=== PATIENT | female | born 1935 | race Hispanic/Latino ===

== ENCOUNTER 2017-01-21 12:00 | Inpatient (IN) | payer MEDICARE ==
[2017-01-21 12:00] VITALS: PULSE 160
--- NOTE | 2017-01-21 12:35 | ED PDOC ---
Arrival/HPI - General Time Seen by Provider: 01/21/17 12:13 Historian: Patient - History of Present Illness Narrative History of Present Illness (Text): 01/21/17 12:31 Patient is an 81 year old female whose past medical history includes NH and stents, no known history of atrial fibrillation, sent by ship manager for evaluation of "fast heart rate." Patient reports some intermittent dizziness since 2016 and states symptoms have not recently worsened. Currently patient denies chest pain, shortness of breath, or other symptoms. Denies headaches. Denies chest pain. Currently denies symptoms. Used Building Materials Yard Worker: Dr. Denise Greenberg MD ([facility]) Time/Duration: > month Symptom Onset: Gradual Symptom Course: Intermittent Modifying Factors (Text): None Associated Symptoms (Text): None Past Medical History - Provider Review Nursing Documentation Reviewed: Yes - Cardiac Hx Cardiac Disorders: Yes ([place] w/ LAD stent (04/18/2015)) Hx Congestive Heart Failure: Yes Hx Hypertension: Yes Hx Peripheral Edema: Yes (ble +1) - Pulmonary Hx Respiratory Disorders: No - Neurological Hx Neurological Disorder: Yes (SYNCOPE) Hx Dizziness: Yes Hx Migraine: Yes - HEENT Hx HEENT Disorder: Yes Hx Macular Degeneration: Yes - Renal Hx Renal Disorder: No - Endocrine/Metabolic Hx Endocrine Disorders: No - Hematological/Oncological Hx Blood Disorders: No - Integumentary Hx Dermatological Disorder: No - Musculoskeletal/Rheumatological Hx Musculoskeletal Disorders: No Hx Arthritis: No Hx Falls: No - Gastrointestinal Hx Gastrointestinal Disorders: Yes Hx Gastroesophageal Reflux: Yes - Genitourinary/Gynecological Hx Genitourinary Disorders: No Hx Reproductive Disorders: No - Psychiatric Hx Psychophysiologic Disorder: Yes Hx Anxiety: Yes Hx Substance Use: No - Surgical History Hx Cardiac Catheterization: Yes Hx Coronary Stent: Yes (X3 8-7-15) - Anesthesia Hx Anesthesia: No Hx Anesthesia Reactions: No Hx Malignant Hyperthermia: No - Suicidal Assessment Feels Threatened In Home Enviroment: No Family/Social History - Physician Review Nursing Documentation Reviewed: Yes Family/Social History: Unknown Family HX Smoking Status: Former Smoker Hx Alcohol Use: No Hx Substance Use: No Allergies/Home Meds Allergies/Adverse Reactions: Allergies amlodipine Allergy (Verified 01/21/17 17:15) SHORTNESS OF BREATH betamethasone Allergy (Verified 01/21/17 17:15) ANAPHYLAXIS candesartan Allergy (Verified 01/21/17 17:15) ANAPHYLAXIS clindamycin Allergy (Verified 01/21/17 17:15) ANAPHYLAXIS clobetasol Allergy (Verified 01/21/17 17:15) ANAPHYLAXIS hydroxyzine Allergy (Verified 01/21/17 17:15) ANAPHYLAXIS lisinopril Allergy (Verified 01/21/17 17:15) ANAPHYLAXIS metoprolol Allergy (Verified 01/21/17 17:15) SHORTNESS OF BREATH nebivolol HCl [From Bystolic] Allergy (Verified 01/21/17 17:15) SHORTNESS OF BREATH nisoldipine Allergy (Verified 01/21/17 17:15) ANAPHYLAXIS olmesartan medoxomil [From Benicar] Allergy (Verified 01/21/17 17:15) ANAPHYLAXIS rofecoxib [From Vioxx] Allergy (Verified 01/21/17 17:15) ANAPHYLAXIS Home Medications: Home Meds Medication Instructions Recorded Confirmed ALPRAZolam [Xanax] 0.5 tab PO PRN PRN 07/19/16 07/19/16 Furosemide [Lasix] 40 mg PO DAILY 07/19/16 07/19/16 Review of Systems - Review of Systems Constitutional: absent: Fevers Eyes: absent: Vision Changes ENT: absent: Hearing Changes Respiratory: absent: SOB, Cough Cardiovascular: absent: Chest Pain Gastrointestinal: absent: Abdominal Pain, Nausea, Vomiting Genitourinary Female: absent: Dysuria, Hematuria Musculoskeletal: absent: Back Pain Skin: absent: Rash Neurological: Dizziness Endocrine: absent: Diaphoresis Psychiatric: absent: Depression Physical Exam - Physical Exam Narrative Physical Exam (Text): Head: Atraumatic. Normocephalic. Eyes: PERRL. EOMI. Conjunctivae are not pale. ENT: Mucous membranes are moist and intact. Oropharynx is clear and symmetric. Neck: Supple. Full ROM. No JVD. No lymphadenopathy. Cardiovascular: Tachycardic. Irregularly irregular rhythm. No murmurs, rubs, or gallops. Distal pulses are 2+ and symmetric. Pulmonary/Chest: No evidence of respiratory distress. Clear to auscultation bilaterally. No wheezing, rales or rhonchi. Abdominal: Soft and non-distended. There is no tenderness. No rebound, guarding, or rigidity. No organomegaly. Good bowel sounds. Back: No CVA tenderness. Extremities: No edema. No cyanosis. No clubbing. Full range of motion in all extremities. No calf tenderness. Skin: Skin is warm and dry. No petechiae. No purpura. Neurological: Alert, awake, and oriented to person, place, time, and situation. Normal speech. Psychiatric: Good eye contact. Normal interaction, affect, and behavior. Vital Signs Reviewed: Yes Vital Signs Temp Pulse Resp BP Pulse Ox 01/21/17 19:18 71 18 127/84 99 01/21/17 17:45 76 18 110/75 100 01/21/17 17:03 123 H 18 109/72 99 01/21/17 16:45 129 H 122/78 01/21/17 16:32 131 H 17 122/78 99 01/21/17 15:43 142 H 135/86 01/21/17 15:36 132 H 18 135/86 97 01/21/17 13:22 139 H 15 137/97 H 97 01/21/17 13:03 147 H 138/98 H 01/21/17 12:31 98.8 F 133 H 14 132/81 98 Temperature: Afebrile Blood Pressure: Normal Pulse: Tachycardic Respiratory Rate: Normal Appearance: Positive for: Well-Appearing, Non-Toxic, Comfortable Pain Distress: None Mental Status: Positive for: Alert and Oriented X 3 Medical Decision Making ED Course and Treatment: Patient reportedly sent from ship manager's office prior to arrival. Patient on examination noted to be in atrial fibrillation with rapid ventricular rate. Patient with stable blood pressure. No chest pain or shortness of breath. Chest X-ray Glass Ribbon Machine Operator: Madi Gil MD IMPRESSION: No active disease 01/21/17 12:48 Allergies reviewed with patient. Patient states that taking certain blood pressure medications causes "upset stomach." Case discussed with ship manager Dr. Francisco who confirms that patient has described her "allergies" as "upset stomach" not anaphylaxis. After careful review of her stated allergies, patient was initiated on Cardizem bolus, with no adverse effect. Heart rate remained elevated, thus additional Cardizem bolus and drip ordered with improvement in rate. Heparin drip ordered. Patient updated with diagnosis and treatment plan. She is comfortable with improved heart rate on re-examination. Case discussed with Dr. Thompson who accepts for admission to telemetry for new onset atrial fibrillation - Lab Interpretations Lab Results: 01/21/17 12:20 01/21/17 12:20 Lab Results 01/21/17 12:20: Sodium 141, Potassium 4.2, Chloride 100, Carbon Dioxide 32, Anion Gap 13, BUN 30 H, Creatinine 0.8, Est GFR ( Amer) > 60, Est GFR ( Non-Af Amer) > 60, Random Glucose 108, Calcium 9.4, Total Bilirubin 0.3, AST 43 H, ALT 33, Alkaline Phosphatase 71, Lactate Dehydrogenase 576, Total Creatine Kinase 82, Troponin I 0.03, NT-Pro-B Natriuret Pep 1700 H, Total Protein 8.0, Albumin 4.3, Globulin 3.6, Albumin/Globulin Ratio 1.2 01/21/17 12:20: Urine Color Yellow, Urine Appearance Clear, Urine pH 6.0, Ur Specific [place] <= 1.005, Urine Protein Negative, Urine Glucose (UA) Negative, Urine Ketones Negative, Urine Blood Trace-lysed H, Urine Nitrate Positive H, Urine Bilirubin Negative, Urine Urobilinogen 0.2, Ur Leukocyte Esterase Moderate H, Urine RBC 0 - 2, Urine WBC 25 - 30, Ur Epithelial Cells 0 - 2, Urine Bacteria Mod 01/21/17 12:20: PT 10.4, INR 0.96, APTT 24.3 01/21/17 12:20: WBC 8.3 D, RBC 4.35, Hgb 13.5, Hct 40.5, MCV 93.1, MCH 31.0, MCHC 33.3, RDW 14.2, Plt Count 229, MPV 11.2 H, Gran % 67.4, Lymph % (Auto) 22.7 , [place] % (Auto) 7.5 H, Eos % (Auto) 1.6, Baso % (Auto) 0.8, Gran # 5.60, Lymph # 1.9, [place] # 0.6, Eos # 0.1, Baso # 0.07 I have reviewed the lab results: Yes - RAD Interpretation Radiology Orders: 01/21/17 12:38 CHEST PORTABLE [RAD] Stat - Medication Orders Current Medication Orders: Aspirin (Ecotrin) 81 mg PO 0800 JEFF Clopidogrel Bisulfate (Plavix) 75 mg PO 0800 JEFF Furosemide (Lasix) 20 mg PO DAILY JEFF diltiaZEM IVPB 100mg in NS (Cardizem 100mg In Ns) 100 mls @ 5 mls/hr IV .Q20H PRN; Protocol; 5 MG/HR PRN Reason: TITRATE PER MD ORDER Last Admin: 01/21/17 16:45 Dose: 5 mls/hr Heparin Sodium/Sodium Chloride (Heparin 63950 Units/250ml 1/2 Normal Saline) 25 ,000 units in 250 mls @ 9.079 mls/hr IV .Q24H PRN; Protocol; 18 UNIT/KG/HR PRN Reason: PER MD ORDER Last Admin: 01/21/17 16:58 Dose: 9.079 mls/hr Pantoprazole Sodium (Protonix Ec Tab) 40 mg PO DAILY JEFF Discontinued Medications Diltiazem HCl (Cardizem) 10 mg IVP ONCE ONE Stop: 01/21/17 12:46 Last Admin: 01/21/17 13:03 Dose: 10 mg Diltiazem HCl (Cardizem) 15 mg IVP ONCE ONE Stop: 01/21/17 13:24 Last Admin: 01/21/17 15:43 Dose: 15 mg Heparin Sodium (Porcine) (Heparin) 3,400 units 70 units/kg (3400 units) IV ONCE ONE PRN Reason: Protocol Stop: 01/21/17 15:32 Last Admin: 01/21/17 16:33 Dose: 3,400 units Heparin Sodium/Sodium Chloride (Heparin 05681 Units/250ml 1/2 Normal Saline) 25 ,000 units in 250 mls @ 8.818 mls/hr IV .Q24H PRN; Protocol; 18 UNITS/KG/HR PRN Reason: ADJUST RATE PER PROTOCOL - Scribe Statement The provider has reviewed the documentation as recorded by the Lory Gottlieb Provider Scribe Attestation: All medical record entries made by the Lory were at my direction and personally dictated by me. I have reviewed the chart and agree that the record accurately reflects my personal performance of the history, physical exam, medical decision making, and the department course for this patient. I have also personally directed, reviewed, and agree with the discharge instructions and disposition. Disposition/Present on Arrival - Present on Arrival Any Indicators Present on Arrival: No History of DVT/PE: No History of Uncontrolled Diabetes: No Urinary Catheter: No History Surgical Site Infection Following: None - Disposition Have Diagnosis and Disposition been Completed?: Yes Diagnosis: Atrial fibrillation with rapid ventricular response Disposition: HOSPITALIZED Disposition Time: 14:00 Patient Plan: Admission, Telemetry Condition: FAIR
[2017-01-21 12:46] LABS: ADD MANUAL DIFF? NO
[2017-01-21 12:52] LABS: URINE BILIRUBIN NEGATIVE (NEGATIVE); URINE BLOOD TRACE-LYSED (NEGATIVE); URINE GLUCOSE (UA) NEGATIVE (NEGATIVE); URINE KETONE NEGATIVE (NEGATIVE); URINE LEUKOCYTE ESTERASE MODERATE Leu/uL (NEGATIVE); URINE PROTEIN NEGATIVE mg/dL (<30 mg/dL); URINE UROBILINOGEN 0.2 E.U./dL (<1 E.U./dL)
[2017-01-21 12:54] LABS: BASO # 0.07 K/mm3 (0.0-2.0); BASO % 0.8 % (0.0-3.0); EOS # 0.1 (0.0-0.7); EOS % 1.6 % (1.5-5.0); GRAN % 67.4 % (50.0-68.0); HEMATOCRIT 40.5 % (36.0-48.0); LYMPH # 1.9 (1.2-3.4); LYMPH % 22.7 % (22.0-35.0); MEAN CELL VOLUME 93.1 fL (80.0-105.0); MEAN CORPUSCULAR HGB CONC 33.3 g/dl (31.0-37.0); MEAN PLATELET VOLUME 11.2 fl (7.0-11.0); MONO # 0.6 (0.1-0.6); MONO % 7.5 % (1.0-6.0); PLATELET COUNT 229 10^3/uL (120.0-450.0); RED CELL DISTRIBUTION WIDTH 14.2 % (11.5-14.5); WHITE BLOOD COUNT 8.3 10^3/ul (4.5-11.0)
[2017-01-21 12:57] LABS: URINE APPEARANCE CLEAR (CLEAR); URINE COLOR YELLOW (YELLOW)
[2017-01-21 12:59] LABS: ALB/GLOB RATIO 1.2 (1.1-1.8); ALKALINE PHOSPHATASE 71 U/L (38-133); ALT/SGPT 33 U/L (7-56); AST/SGOT 43 U/L (15-39); BILIRUBIN,TOTAL 0.3 mg/dL (0.2-1.3); BLOOD UREA NITROGEN 30 mg/dL (7-21); CALCIUM 9.4 mg/dL (8.4-10.5); CARBON DIOXIDE 32 mmol/L (21-33); CHLORIDE 100 mmol/L (98-107); GFR AFRICAN-AMERICAN > 60; GLUCOSE,RANDOM 108 mg/dL (70-110); POTASSIUM 4.2 mmol/L (3.6-5.0); SODIUM 141 mmol/L (132-148)
--- NOTE | 2017-01-21 13:02 | RAD ---
HISTORY: dizziness COMPARISON: 07/19/2016 FINDINGS: LUNGS: No active pulmonary disease. PLEURA: No significant pleural effusion identified, no pneumothorax apparent. CARDIOVASCULAR: Normal. OSSEOUS STRUCTURES: No significant abnormalities. VISUALIZED UPPER ABDOMEN: Normal. OTHER FINDINGS: None. IMPRESSION: No active disease.
[2017-01-21 13:06] LABS: INR 0.96 (0.93-1.08); PARTIAL THROMBOPLASTIN TIME 24.3 Seconds (23.7-30.8)
[2017-01-21 13:11] LABS: TROPONIN I 0.03 ng/mL
[2017-01-21] MEDS ORDERED: diltiaZEM IVPB 100mg in NS 100 ML IV PRN (13:24)
[2017-01-21 13:39] LABS: URINE BACTERIA MOD (NEG); URINE EPITHELIAL CELLS 0 - 2 /hpf (0-5); URINE RBC 0 - 2 /hpf (0-2); URINE WBC 25 - 30 /hpf (0-6)
[2017-01-21] MEDS ORDERED: Heparin25000 units/250ml 1/2NS 25,000 UNITS/250 ML BAG IV PRN ×2 (15:31→16:53)
--- NOTE | 2017-01-21 16:28 | CP.PCM.HP ---
Addendum entered and electronically signed by Melissa Soria DO 01/21/17 17:16: Plan edit: since patient has ST elevations on presentation, will trend trops and EKG. Original Note: <Melissa Soria - Last Filed: 01/21/17 16:18> History of Present Illness - History of Present Illness History of Present Illness: CC: fast heart rate 81 year old female with past medical history of CAD s/p stents x 2, HLD, paroxysmal a fib, pituitary adenoma and macular degeneration presents to ED for tachycardia. Patient states that she went to see her internet sales representative, Dr. Greenberg for a scheduled visit and mentioned that she had chest pressure. EKG done at clinic showed a "fast heart rate" and she was told to go to ED. Patient does not know a specific time for when this chest pressure began. She states that since her heart attack in 05/2015, she has been having chest pressure on left side. The pressure is intermittent and is not associated with any activity and does not radiate. Since heart attack, she has been feeling dizzy as well. The dizziness is intermittent and she attributes it to taking her lisinopril. Patient denies having any history of a fib but in previous notes, it is documented. Today, patient denies having any CP, SOB, abd pain, N/V /D/C, f/c, dysuria or increased urinary frequency. PMhx; stated above Sx; PCi with stents Meds: see MAR Social: former smoker, quit 40 yrs ago. Daily ETOH use 1 glass of wine. No drug use Allergies: amlodipine, betamethasone, candesartan, clindamycin, clobetasol, hydroxyzine, lisinopril, metoprolol, nebivolol, nisoldipine, olmesartan, rofecoxib PMD: Dr. Busby Administrative Representative: Dr. Greenberg. She was seen by Dr. Hickman in past. Present on Admission - Present on Admission Any Indicators Present on Admission: No Review of Systems - Review of Systems All systems: reviewed and no additional remarkable complaints except Past Patient History - Past Social History Smoking Status: Former Smoker Chewing Tobacco Use: No Cigar Use: No Alcohol: None Drugs: Denies Home Situation {Lives}: Alone - CARDIAC Hx Cardiac Disorders: Yes ([place] w/ LAD stent (04/18/2015)) Hx Congestive Heart Failure: Yes Hx Hypertension: Yes Hx Peripheral Edema: Yes (ble +1) - PULMONARY Hx Respiratory Disorders: No - NEUROLOGICAL Hx Neurological Disorder: Yes (SYNCOPE) Hx Dizziness: Yes Hx Migraine: Yes - HEENT Hx HEENT Problems: Yes Hx Macular Degeneration: Yes - RENAL Hx Chronic Kidney Disease: No - ENDOCRINE/METABOLIC Hx Endocrine Disorders: No - HEMATOLOGICAL/ONCOLOGICAL Hx Blood Disorders: No - INTEGUMENTARY Hx Dermatological Problems: No - MUSCULOSKELETAL/RHEUMATOLOGICAL Hx Musculoskeletal Disorders: No Hx Arthritis: No Hx Falls: No - GASTROINTESTINAL Hx Gastrointestinal Disorders: Yes Hx Gastroesophageal Reflux: Yes - GENITOURINARY/GYNECOLOGICAL Hx Genitourinary Disorders: No Hx Reproductive Disorders: No - PSYCHIATRIC Hx Psychophysiologic Disorder: Yes Hx Anxiety: Yes Hx Substance Use: No - SURGICAL HISTORY Hx Cardiac Catheterization: Yes Hx Coronary Stent: Yes (X3 04-18-15) - ANESTHESIA Hx Anesthesia: No Hx Anesthesia Reactions: No Hx Malignant Hyperthermia: No Meds Allergies/Adverse Reactions: Allergies Allergy/AdvReac Type Severity Reaction Status Date / Time amlodipine Allergy SHORTNESS Verified 01/21/17 17:15 OF BREATH betamethasone Allergy ANAPHYLAXIS Verified 01/21/17 17:15 candesartan Allergy ANAPHYLAXIS Verified 01/21/17 17:15 clindamycin Allergy ANAPHYLAXIS Verified 01/21/17 17:15 clobetasol Allergy ANAPHYLAXIS Verified 01/21/17 17:15 hydroxyzine Allergy ANAPHYLAXIS Verified 01/21/17 17:15 lisinopril Allergy ANAPHYLAXIS Verified 01/21/17 17:15 metoprolol Allergy SHORTNESS Verified 01/21/17 17:15 OF BREATH nebivolol HCl [From Bystolic] Allergy SHORTNESS Verified 01/21/17 17:15 OF BREATH nisoldipine Allergy ANAPHYLAXIS Verified 01/21/17 17:15 olmesartan medoxomil Allergy ANAPHYLAXIS Verified 01/21/17 17:15 [From Benicar] rofecoxib [From Vioxx] Allergy ANAPHYLAXIS Verified 01/21/17 17:15 Physical Exam - Constitutional Appears: Non-toxic, No Acute Distress - Head Exam Head Exam: ATRAUMATIC - ENT Exam ENT Exam: Mucous Membranes Moist - Respiratory Exam Respiratory Exam: Clear to Auscultation Bilateral, NORMAL BREATHING PATTERN. absent: Accessory Muscle Use, Rales, Rhonchi, Wheezes, Respiratory Distress - Cardiovascular Exam Cardiovascular Exam: Tachycardia, +S1, +S2 - GI/Abdominal Exam GI & Abdominal Exam: Normal Bowel Sounds, Soft. absent: Distended, Firm, Guarding, Rigid, Tenderness - Extremities Exam Extremities exam: Negative for: pedal edema, tenderness - Neurological Exam Neurological exam: Alert, Oriented x3 - Psychiatric Exam Psychiatric exam: Normal Affect, Normal Mood - Skin Skin Exam: Dry, Intact, Normal Color, Warm Results - Vital Signs Recent Vital Signs: Last Vital Signs Temp 98.8 F 01/21/17 12:31 Pulse 142 H 01/21/17 15:43 Resp 18 01/21/17 15:36 BP 135/86 01/21/17 15:43 Pulse Ox 97 01/21/17 15:36 - Labs Result Diagrams: 01/21/17 12:20 01/21/17 12:20 Labs: Laboratory Results - last 24 hr 01/21/17 01/21/17 01/21/17 12:20 12:20 12:20 WBC 8.3 D RBC 4.35 Hgb 13.5 Hct 40.5 MCV 93.1 MCH 31.0 MCHC 33.3 RDW 14.2 Plt Count 229 MPV 11.2 H Gran % 67.4 Lymph % (Auto) 22.7 [place] % (Auto) 7.5 H Eos % (Auto) 1.6 Baso % (Auto) 0.8 Gran # 5.60 Lymph # 1.9 [place] # 0.6 Eos # 0.1 Baso # 0.07 PT 10.4 INR 0.96 APTT 24.3 Sodium Potassium Chloride Carbon Dioxide Anion Gap BUN Creatinine Est GFR ( Amer) Est GFR (Non-Af Amer) Random Glucose Calcium Total Bilirubin AST ALT Alkaline Phosphatase Lactate Dehydrogenase Total Creatine Kinase Troponin I NT-Pro-B Natriuret Pep Total Protein Albumin Globulin Albumin/Globulin Ratio Urine Color Yellow Urine Appearance Clear Urine pH 6.0 Ur Specific [place] <= 1.005 Urine Protein Negative Urine Glucose (UA) Negative Urine Ketones Negative Urine Blood Trace-lysed H Urine Nitrate Positive H Urine Bilirubin Negative Urine Urobilinogen 0.2 Ur Leukocyte Esterase Moderate H Urine RBC 0 - 2 Urine WBC 25 - 30 Ur Epithelial Cells 0 - 2 Urine Bacteria Mod 01/21/17 12:20 WBC RBC Hgb Hct MCV MCH MCHC RDW Plt Count MPV Gran % Lymph % (Auto) [place] % (Auto) Eos % (Auto) Baso % (Auto) Gran # Lymph # [place] # Eos # Baso # PT INR APTT Sodium 141 Potassium 4.2 Chloride 100 Carbon Dioxide 32 Anion Gap 13 BUN 30 H Creatinine 0.8 Est GFR ( Amer) > 60 Est GFR (Non-Af Amer) > 60 Random Glucose 108 Calcium 9.4 Total Bilirubin 0.3 AST 43 H ALT 33 Alkaline Phosphatase 71 Lactate Dehydrogenase 576 Total Creatine Kinase 82 Troponin I 0.03 NT-Pro-B Natriuret Pep 1700 H Total Protein 8.0 Albumin 4.3 Globulin 3.6 Albumin/Globulin Ratio 1.2 Urine Color Urine Appearance Urine pH Ur Specific [place] Urine Protein Urine Glucose (UA) Urine Ketones Urine Blood Urine Nitrate Urine Bilirubin Urine Urobilinogen Ur Leukocyte Esterase Urine RBC Urine WBC Ur Epithelial Cells Urine Bacteria - EKG Data EKG Interpreted by: Myself Rate: Tachycardia Assessment & Plan - Assessment and Plan (Free Text) Assessment: 81 year old female with past medical history of CAD s/p stents x 2, HLD, paroxysmal a fib, pituitary adenoma and macular degeneration is admitted for paroxysmal atiral fibrillation. EKG on presentation showed a fib with HR of [address] elevations on V2-V6. ST changes were present on pervious EKGs as well. Initial troponin is negative. Paroxysmal a fib - Pt given cardizem IV push in ED which did not control her HR. Now she is on cardizem drip. - CHADSVAS score of 5. Patient is given a heparin loading dose and is started on heparin drip. - Cardiology, Dr. Liu is consulted - Will check hgba1c and lipid panel and TSH and Free T4 - Will get echo. Last echo from 2014 showed EF of 40% with mild MR and TR CAD s/p stent - Will continue home medications aspirin and plavix HLD - Will check lipid panel. - Patient states that she polanco snot take any cholesterol lowering meds due to side effects Bacturia - Patient is asymptomatic so will not treat at this time. Prophylaxis - Protonix - Heparin, SCDs Case discussed with attending, Dr. Aj - Date & Time Date: 01/21/17 Time: 16:29 <Jarret Aj - Last Filed: 01/22/17 16:06> Results - Vital Signs Recent Vital Signs: Last Vital Signs Temp 98 F 01/22/17 11:41 Pulse 74 01/22/17 11:41 Resp 18 01/22/17 11:41 BP 105/71 01/22/17 11:41 Pulse Ox 98 01/22/17 05:54 - Labs Result Diagrams: 01/22/17 07:00 01/22/17 07:00 Labs: Laboratory Results - last 24 hr 01/21/17 01/21/17 01/22/17 23:07 23:07 07:00 WBC RBC Hgb Hct MCV MCH MCHC RDW Plt Count MPV Gran % Lymph % (Auto) [place] % (Auto) Eos % (Auto) Baso % (Auto) Gran # Lymph # [place] # Eos # Baso # PT 11.4 INR 1.06 APTT 94.1 H* 99.8 H* Sodium Potassium Chloride Carbon Dioxide Anion Gap BUN Creatinine Est GFR ( Amer) Est GFR (Non-Af Amer) Random Glucose Calcium Total Bilirubin AST ALT Alkaline Phosphatase Troponin I 0.06 D Total Protein Albumin Globulin Albumin/Globulin Ratio Triglycerides Cholesterol LDL Cholesterol Direct HDL Cholesterol Thyroxine (T4) TSH 3rd Generation 01/22/17 01/22/17 01/22/17 07:00 07:00 07:00 WBC 7.4 RBC 4.08 Hgb 12.3 Hct 37.6 MCV 92.2 MCH 30.1 MCHC 32.7 RDW 14.3 Plt Count 217 MPV 11.3 H Gran % 55.4 Lymph % (Auto) 32.5 [place] % (Auto) 8.6 H Eos % (Auto) 2.6 Baso % (Auto) 0.9 Gran # 4.11 Lymph # 2.4 [place] # 0.6 Eos # 0.2 Baso # 0.07 PT INR APTT Sodium 141 Potassium 4.0 Chloride 103 Carbon Dioxide 29 Anion Gap 13 BUN 20 Creatinine 0.6 Est GFR ( Amer) > 60 Est GFR (Non-Af Amer) > 60 Random Glucose 75 Calcium 8.8 Total Bilirubin 0.5 AST 32 ALT 36 Alkaline Phosphatase 66 Troponin I 0.05 Total Protein 7.3 Albumin 3.8 Globulin 3.4 Albumin/Globulin Ratio 1.1 Triglycerides 41 Cholesterol 214 H LDL Cholesterol Direct 141 H HDL Cholesterol 54 Thyroxine (T4) 5.9 TSH 3rd Generation 3.15 Attending/Attestation - Attestation I have personally seen and examined this patient.: Yes I have fully participated in the care of the patient.: Yes I have reviewed all pertinent clinical information: Yes Notes (Text): I have seen and examined patient at bedside. Agree with the above note with the following additions / exceptions: Briefly this is 81 year old male with history of CAD s/p stents x 2, HLD, former smoker, paroxysmal atrial fibrillation, pituitary adenoma and macular degeneration who got admitted for evaluation of palpitations and found to have paroxysmal atrial fibrillation. CHADSVASC score is 5. Will start heparin drip and cardizem drip. Will discuss with Dr Thomson regarding intermediate teacher anticoagulation. Patient reports that in the past she used to take coumadin but stopped couple of years ago. Will check tsh. Last echo from 2014 showed EF of 40% with mild MR and TR. Will check serial troponins, lipid panel and ekg. Upon discharge patient will follow up with Dr Greenberg and Dr Grant. Dr Jarret Aj
[2017-01-21] MEDS: Heparin25000 units/250ml 1/2NS 25,000 UNITS/250 ML BAG IV PRN (21:09)
[2017-01-21 22:59] VITALS: BMI 20.2
[2017-01-21] MEDS ORDERED: Pneumococcal 23-Valent Vaccine IM ONE (22:59)
[2017-01-22 07:34] LABS: ADD MANUAL DIFF? NO
[2017-01-22 07:42] LABS: BASO # 0.07 K/mm3 (0.0-2.0); BASO % 0.9 % (0.0-3.0); EOS # 0.2 (0.0-0.7); EOS % 2.6 % (1.5-5.0); GRAN # 4.11 (1.4-6.5); GRAN % 55.4 % (50.0-68.0); HEMATOCRIT 37.6 % (36.0-48.0); LYMPH # 2.4 (1.2-3.4); LYMPH % 32.5 % (22.0-35.0); MEAN CELL VOLUME 92.2 fL (80.0-105.0); MEAN CORPUSCULAR HEMOGLOBIN 30.1 pg (25.0-35.0); MEAN CORPUSCULAR HGB CONC 32.7 g/dl (31.0-37.0); MEAN PLATELET VOLUME 11.3 fl (7.0-11.0); MONO # 0.6 (0.1-0.6); MONO % 8.6 % (1.0-6.0); PLATELET COUNT 217 10^3/uL (120.0-450.0); RED CELL DISTRIBUTION WIDTH 14.3 % (11.5-14.5); WHITE BLOOD COUNT 7.4 10^3/ul (4.5-11.0)
[2017-01-22 07:58] LABS: ALB/GLOB RATIO 1.1 (1.1-1.8); ALKALINE PHOSPHATASE 66 U/L (38-133); ALT/SGPT 36 U/L (7-56); AST/SGOT 32 U/L (15-39); BILIRUBIN,TOTAL 0.5 mg/dL (0.2-1.3); BLOOD UREA NITROGEN 20 mg/dL (7-21); CALCIUM 8.8 mg/dL (8.4-10.5); CARBON DIOXIDE 29 mmol/L (21-33); CHLORIDE 103 mmol/L (98-107); CHOLESTEROL 214 mg/dL (130-200); GFR AFRICAN-AMERICAN > 60; GLUCOSE,RANDOM 75 mg/dL (70-110); SODIUM 141 mmol/L (132-148); TOTAL PROTEIN 7.3 g/dL (5.8-8.3)
[2017-01-22 08:06] LABS: INR 1.06 (0.93-1.08); TROPONIN I 0.05 ng/mL
[2017-01-22 08:07] LABS: PARTIAL THROMBOPLASTIN TIME 99.8 Seconds (23.7-30.8)
[2017-01-22 09:22] LABS: T4 5.9 ug/dL (5.5-11.0)
[2017-01-22 09:32] LABS: THYROID STIMULATING HORMONE 3.15 mIU/mL (0.46-4.68)
--- NOTE | 2017-01-22 09:40 | CARD ---
APPROVED REPORT EKG Measurement Heart [id number] <Conclusion> Atrial fibrillation with rapid ventricular response, new Left axis deviation, LAHB Inferior infarct, age undetermined Anterolateral infarct, old, with persistent ST elevations V 1 - 3 STTW changes
[2017-01-22] MEDS: Pantoprazole 40 mg EC Tab PO SCH (09:56)
--- NOTE | 2017-01-22 09:59 | CARD ---
APPROVED REPORT EKG Measurement Heart [id number] <Conclusion> Normal sinus rhythm, new Left axis deviation Inferior infarct, age undetermined Anterolateral infarct, age undetermined STTW changes
--- NOTE | 2017-01-22 10:12 | CARD ---
APPROVED REPORT EKG Measurement Heart [id number] [place] [id number] <Conclusion> Normal sinus rhythm Left axis deviation Inferior infarct, age undetermined Anterolateral infarct, age undetermined
--- NOTE | 2017-01-22 11:30 | CON ---
DATE: 01/22/2017 INDICATIONS: Paroxysmal atrial fibrillation. HISTORY OF PRESENT ILLNESS: This is an 81-year-old woman known to our practice , who presents with palpitations and fast heartbeat. She went to see her new press operator printing, Dr. Greenberg and was found to be in atrial fibrillation with rapid ventricular response. She was sent to the hospital and admitted to telemetry. She was placed on a Cardizem drip and subsequently reverted to sinus rhythm and is currently in sinus rhythm. She is resting in bed with no symptoms at this time. She does describe chronic dizziness and lightheadedness , which she feels is related to medications. There has been no chest pain, shortness of breath, orthopnea, PND, syncope, vertigo, fever, chills, cough, sputum production, hemoptysis, abdominal pain, nausea, vomiting, diarrhea, constipation, melena. PAST MEDICAL HISTORY: Notable for coronary artery disease. She suffered an acute myocardial infarction in 04/2016. At that time, the LAD was occluded and it was opened utilizing 2 drug-eluting stents. She had an episode of congestive heart failure at that time. Subsequently, her coronary status has been stable. She has a history of paroxysmal atrial fibrillation, hypertension , pituitary microadenoma, vitreous hemorrhage, sciatica, anxiety and numerous medication intolerances. There is no history of rheumatic fever, stroke, TIA, diabetes or gout. MEDICATIONS: At the time of admission included aspirin, Lasix, Plavix and Xanax. ALLERGIES: SHE NOTES ALLERGIES AND INTOLERANCES TO MULTIPLE MEDICATIONS. SOCIAL HISTORY: She lives at home. She does not currently smoke. She does not drink alcohol. She is ambulatory. FAMILY HISTORY: Noncontributory. REVIEW OF SYSTEMS: Ten point review of systems otherwise unremarkable except as noted above. PHYSICAL EXAMINATION: GENERAL: She is a well-developed woman lying in bed on telemetry in no acute distress. VITAL SIGNS: Unremarkable. She is currently in sinus rhythm at 58 beats per minute. She is afebrile. Blood pressure 118/73, respirations 20, O2 sat 98% on room air. HEENT: Reveals no neck vein distention, thyromegaly, or carotid bruits. Mucous membranes are moist. Conjunctivae are pink. NECK: Supple. LUNGS: Ocasio clear. HEART: Revealed a regular rhythm with soft systolic murmur along the left sternal border. ABDOMEN: Soft, bowel sounds present. No mass, organomegaly, tenderness, rebound, or guarding. No CVA tenderness. No palpable abdominal aortic aneurysm. EXTREMITIES: Revealed no cyanosis, clubbing, or edema. NEUROLOGIC: She is awake, alert and oriented. PSYCHIATRIC: Normal as to mood and affect. SKIN: Warm and dry. No rash or cellulitis. LABORATORY AND IMAGING: A chest x-ray, a portable study, reveals no active disease. EKG demonstrated atrial fibrillation with rapid ventricular response. There is evidence of an anterior septal myocardial infarction. There are ST elevations in the precordial leads. Compared to a prior EKG, the atrial fibrillation is new. The precordial QRS T pattern is unchanged. CBC unremarkable. PT, INR, PTT normal, on heparin PTT this morning is 99.8. Electrolytes, BUN, creatinine, blood sugar, LFTs unremarkable. CK 82. Three troponins are negative. BNP 1700. Total cholesterol 214, LDL is pending. HDL 54, triglycerides 41. IMPRESSION: The patient is an 81-year-old woman with paroxysmal atrial fibrillation, rapid ventricular response, also chronic dizziness and medication intolerances. Also history of coronary artery disease, presenting with acute myocardial infarction in 04/2016 at which time the left anterior descending was occluded and was opened utilizing drug-eluting stents. Her CHADS score is approximately 5. She is on heparin drip. She should be considered for long-term anticoagulation, perhaps with a novel agent such as Eliquis. This will have to be discussed with her given her reluctance to take medications due to numerous intolerances. We can consider switching the Plavix (for Brilinta), continuing aspirin and starting her on metoprolol to preserve sinus rhythm. At this time she has sought a second opinion with another press operator printing. At the time of discharge, we will define who will be following her in the future. I would discontinue the Cardizem drip. She can be out of bed to chair. We will monitor I's and O's. I will order an echocardiogram. Frederic Thomson MD cc: [id number] TT: 01/22/2017 11:29:44 Confirmation # [id number] Dictation # [id number] jn MICHELLE
--- NOTE | 2017-01-22 17:37 | CP.PCM.PN ---
Subjective - Date & Time of Evaluation Date of Evaluation: 01/22/17 Time of Evaluation: 10:10 Objective - Vital Signs/Intake and Output Vital Signs (last 24 hours): Temp Pulse Resp BP Pulse Ox 98.1 F 73 18 146/96 H 98 01/22/17 16:43 01/22/17 16:43 01/22/17 16:43 01/22/17 16:43 01/22/17 05:54 Intake and Output: 01/22/17 01/22/17 06:59 18:59 Intake Total 581 720 Output Total 725 900 Balance -144 -180 - Medications Medications: Current Medications Aspirin (Ecotrin) 81 mg PO 0800 [facility] Last Admin: 01/22/17 08:15 Dose: 81 mg Clopidogrel Bisulfate (Plavix) 75 mg PO 0800 [facility] Last Admin: 01/22/17 14:27 Dose: 75 mg Furosemide (Lasix) 20 mg PO DAILY [facility] Last Admin: 01/22/17 09:58 Dose: 20 mg diltiaZEM IVPB 100mg in NS (Cardizem 100mg In Ns) 100 mls @ 5 mls/hr IV .Q20H PRN; Protocol; 5 MG/HR PRN Reason: TITRATE PER MD ORDER Last Admin: 01/21/17 16:45 Dose: 5 mls/hr Heparin Sodium/Sodium Chloride (Heparin 02147 Units/250ml 1/2 Normal Saline) 25 ,000 units in 250 mls @ 9.079 mls/hr IV .Q24H PRN; Protocol; 18 UNITS/KG/HR PRN Reason: ADJUST RATE PER PROTOCOL Last Titration: 01/22/17 09:49 Dose: 13 units/kg/hr, 6.557 mls/hr Pantoprazole Sodium (Protonix Ec Tab) 40 mg PO DAILY [facility] Last Admin: 01/22/17 09:56 Dose: 40 mg - Labs Labs: 01/22/17 07:00 01/22/17 07:00 PT 11.4 Seconds (9.9-11.8) 01/22/17 07:00 INR 1.06 (0.93-1.08) 01/22/17 07:00 APTT 62.0 Seconds (23.7-30.8) H 01/22/17 16:00
[2017-01-23] MEDS: Heparin25000 units/250ml 1/2NS 25,000 UNITS/250 ML BAG IV PRN (00:41)
[2017-01-23 07:37] LABS: ADD MANUAL DIFF? NO
[2017-01-23 07:52] LABS: INR 1.11 (0.93-1.08); PARTIAL THROMBOPLASTIN TIME 69.6 Seconds (23.7-30.8)
[2017-01-23 08:00] LABS: BASO # 0.06 K/mm3 (0.0-2.0); BASO % 0.9 % (0.0-3.0); EOS # 0.2 (0.0-0.7); EOS % 3.2 % (1.5-5.0); GRAN # 3.69 (1.4-6.5); GRAN % 55.9 % (50.0-68.0); HEMATOCRIT 39.5 % (36.0-48.0); LYMPH # 2.1 (1.2-3.4); LYMPH % 31.7 % (22.0-35.0); MEAN CELL VOLUME 92.3 fL (80.0-105.0); MEAN CORPUSCULAR HEMOGLOBIN 29.7 pg (25.0-35.0); MEAN CORPUSCULAR HGB CONC 32.2 g/dl (31.0-37.0); MEAN PLATELET VOLUME 11.1 fl (7.0-11.0); MONO # 0.6 (0.1-0.6); MONO % 8.3 % (1.0-6.0); PLATELET COUNT 216 10^3/uL (120.0-450.0); RED CELL DISTRIBUTION WIDTH 14.4 % (11.5-14.5); WHITE BLOOD COUNT 6.6 10^3/ul (4.5-11.0)
[2017-01-23 08:02] LABS: ALKALINE PHOSPHATASE 66 U/L (38-133); ALT/SGPT 33 U/L (7-56); AST/SGOT 32 U/L (15-39); BILIRUBIN,TOTAL 0.4 mg/dL (0.2-1.3); BLOOD UREA NITROGEN 16 mg/dL (7-21); CALCIUM 8.6 mg/dL (8.4-10.5); CARBON DIOXIDE 32 mmol/L (21-33); CHLORIDE 102 mmol/L (95-110); GFR AFRICAN-AMERICAN > 60; GLUCOSE,RANDOM 81 mg/dL (70-110); POTASSIUM 4.3 mmol/L (3.6-5.0); SODIUM 140 mmol/L (132-148); TOTAL PROTEIN 6.8 g/dL (5.8-8.3)
[2017-01-23] MEDS: Pantoprazole 40 mg EC Tab PO SCH (10:21)
--- NOTE | 2017-01-23 10:55 | CP.PCM.PN ---
Subjective - Date & Time of Evaluation Date of Evaluation: 01/22/17 Time of Evaluation: 10:00 - Subjective Subjective: I have seen and examined patient at bedside. Complains of dizziness and nausea. Patient is very concerned about plavix and reports that plavix has been giving her nausea and she does not want to take that anymore. She already got plavix for today. Denies palpitations, chest pain, headache, nausea, abdominal pain, urinary or bowel changes. Patient was updated regarding her condition. Objective - Vital Signs/Intake and Output Vital Signs (last 24 hours): Temp Pulse Resp BP Pulse Ox 98.1 F 71 18 146/96 H 98 01/22/17 16:43 01/22/17 18:00 01/22/17 16:43 01/22/17 16:43 01/22/17 05:54 Intake and Output: 01/22/17 01/22/17 06:59 18:59 Intake Total 581 720 Output Total 725 900 Balance -144 -180 - Medications Medications: Current Medications Aspirin (Ecotrin) 81 mg PO 0800 [facility] Last Admin: 01/22/17 08:15 Dose: 81 mg Clopidogrel Bisulfate (Plavix) 75 mg PO 0800 [facility] Last Admin: 01/22/17 14:27 Dose: 75 mg Furosemide (Lasix) 20 mg PO DAILY [facility] Last Admin: 01/22/17 09:58 Dose: 20 mg diltiaZEM IVPB 100mg in NS (Cardizem 100mg In Ns) 100 mls @ 5 mls/hr IV .Q20H PRN; Protocol; 5 MG/HR PRN Reason: TITRATE PER MD ORDER Last Admin: 01/21/17 16:45 Dose: 5 mls/hr Heparin Sodium/Sodium Chloride (Heparin 10335 Units/250ml 1/2 Normal Saline) 25 ,000 units in 250 mls @ 9.079 mls/hr IV .Q24H PRN; Protocol; 18 UNITS/KG/HR PRN Reason: ADJUST RATE PER PROTOCOL Last Titration: 01/22/17 09:49 Dose: 13 units/kg/hr, 6.557 mls/hr Pantoprazole Sodium (Protonix Ec Tab) 40 mg PO DAILY [facility] Last Admin: 01/22/17 09:56 Dose: 40 mg - Labs Labs: 01/22/17 07:00 01/22/17 07:00 PT 11.4 Seconds (9.9-11.8) 01/22/17 07:00 INR 1.06 (0.93-1.08) 01/22/17 07:00 APTT 62.0 Seconds (23.7-30.8) H 01/22/17 16:00 - Constitutional Appears: Well, No Acute Distress - Head Exam Head Exam: ATRAUMATIC, NORMAL INSPECTION, NORMOCEPHALIC - Eye Exam Eye Exam: EOMI, Normal appearance Pupil Exam: PERRL - ENT Exam ENT Exam: Mucous Membranes Moist - Neck Exam Neck Exam: Full ROM, Normal Inspection. absent: Lymphadenopathy, Tenderness, Thyromegaly - Respiratory Exam Respiratory Exam: Clear to Ausculation Bilateral. absent: Chest Wall Tenderness , Prolonged Expiratory Phase, Rales, Rhonchi, Wheezes, Respiratory Distress - Cardiovascular Exam Cardiovascular Exam: REGULAR RHYTHM, +S1, +S2, Murmur (systolic) - GI/Abdominal Exam GI & Abdominal Exam: Soft, Normal Bowel Sounds. absent: Distended, Tenderness, Pulsatile Mass, Rebound - Rectal Exam Rectal Exam: Deferred - Extremities Exam Extremities Exam: Full ROM, Normal Capillary Refill, Normal Inspection - Back Exam Back Exam: Full ROM, NORMAL INSPECTION. absent: CVA tenderness (L), CVA tenderness (R), muscle spasm, paraspinal tenderness, rash noted, tenderness, vertebral tenderness - Neurological Exam Neurological Exam: Alert, Awake, CN II-XII Intact, Oriented x3 Neuro motor strength exam: Left Upper Extremity: 5, Right Upper Extremity: 5, Left Lower Extremity: 5, Right Lower Extremity: 5 - Psychiatric Exam Psychiatric exam: Normal Affect, Normal Mood - Skin Skin Exam: Dry, Intact, Normal Color, Warm Assessment and Plan - Assessment and Plan (Free Text) Plan: This is 81 year old male with history of CAD s/p stents x 2, HLD, former smoker , paroxysmal atrial fibrillation, pituitary adenoma and macular degeneration who got admitted for evaluation of palpitations and found to have paroxysmal atrial fibrillation. 1-Paroxysmal atrial fibrillation: Her CHADSVASC score is 5. Continue heparin for now. Will discuss with water rights specialist regarding starting newer anticoagulants. Her HR is controlled. Atrial fib converted to sinus rhythm today. Cardizem stopped. Continue metoprolol. Her thyroid function is normal. Last echo from 2014 showed EF of 40% with mild MR and TR. Serial troponins are normal. Lipid panel pending. 2-CAD s/p stent placement: Continue aspirin. Will discuss with water rights specialist as patient doesnt feel comfortable taking plavix. 3-Dyslipidemia: Lipid panel pending. 4-GI prophylaxis: Continue protonix. 5-DVT prophylaxis: continue heparin. 6-Chronic CHF with systolic dysfunction (EF~40%): Continue small dose of lasix. BNP was 1700 however patient does not have any shortness of breath, rales or peripheral edema. Will do echocardiogram. Dispo:Upon discharge patient will follow up with Dr Greenberg and Dr Grant. Dr Jarret Aj
--- NOTE | 2017-01-23 11:16 | CP.PCM.PN ---
Subjective - Date & Time of Evaluation Date of Evaluation: 01/23/17 Time of Evaluation: 08:00 - Subjective Subjective: I have seen and examined patient at bedside. Patient appears very confused regarding her medications. Explained in detail and went over all her medications she is taking. Patient appears convinced that plavix is giving her dizziness. Discussed in detail with Dr Thomson who recommended brilinta. Patient is agreeable to take that. Also discussed with her that she needs anticoagulation and will start eliquis. Patient wants us to talk to her new jewelry bearing maker and update her regarding her condition. Last night, she again had an episode of atrial fibrillation with RVR and cardizem bolus was give. Today, she is back to sinus rhythm and her HR is controlled. Objective - Vital Signs/Intake and Output Vital Signs (last 24 hours): Temp Pulse Resp BP Pulse Ox 98 F 78 20 106/68 98 01/23/17 06:00 01/23/17 10:23 01/23/17 06:00 01/23/17 10:23 01/23/17 06:00 Intake and Output: 01/23/17 01/23/17 06:59 18:59 Intake Total 696 Balance 696 - Medications Medications: Current Medications Aspirin (Ecotrin) 81 mg PO 0800 [facility] Last Admin: 01/23/17 07:48 Dose: 81 mg Furosemide (Lasix) 20 mg PO DAILY [facility] Last Admin: 01/23/17 10:21 Dose: 20 mg diltiaZEM IVPB 100mg in NS (Cardizem 100mg In Ns) 100 mls @ 5 mls/hr IV .Q20H PRN; Protocol; 5 MG/HR PRN Reason: TITRATE PER MD ORDER Last Admin: 01/21/17 16:45 Dose: 5 mls/hr Heparin Sodium/Sodium Chloride (Heparin 12452 Units/250ml 1/2 Normal Saline) 25 ,000 units in 250 mls @ 9.079 mls/hr IV .Q24H PRN; Protocol; 18 UNITS/KG/HR PRN Reason: ADJUST RATE PER PROTOCOL Last Admin: 01/23/17 00:41 Dose: 13 units/kg/hr, 6.557 mls/hr Metoprolol Tartrate (Lopressor) 25 mg PO BID [facility] Last Admin: 01/23/17 10:23 Dose: 25 mg Pantoprazole Sodium (Protonix Ec Tab) 40 mg PO DAILY [facility] Last Admin: 01/23/17 10:21 Dose: 40 mg Ticagrelor (Brilinta) 90 mg PO BID [facility] Last Admin: 01/23/17 10:23 Dose: 90 mg - Labs Labs: 01/23/17 06:50 01/23/17 06:50 PT 12.0 Seconds (9.9-11.8) H 01/23/17 06:50 INR 1.11 (0.93-1.08) H 01/23/17 06:50 APTT 69.6 Seconds (23.7-30.8) H 01/23/17 06:50 - Constitutional Appears: Well, No Acute Distress - Head Exam Head Exam: ATRAUMATIC, NORMAL INSPECTION, NORMOCEPHALIC - Eye Exam Eye Exam: EOMI, Normal appearance Pupil Exam: PERRL - ENT Exam ENT Exam: Mucous Membranes Moist - Neck Exam Neck Exam: Full ROM, Normal Inspection - Respiratory Exam Respiratory Exam: Clear to Ausculation Bilateral, NORMAL BREATHING PATTERN - Cardiovascular Exam Cardiovascular Exam: +S1, +S2, Murmur. absent: Bradycardia, Tachycardia - GI/Abdominal Exam GI & Abdominal Exam: Soft, Normal Bowel Sounds. absent: Distended, Tenderness - Rectal Exam Rectal Exam: Deferred - Extremities Exam Extremities Exam: Full ROM, Normal Capillary Refill, Normal Inspection - Neurological Exam Neurological Exam: Alert, Awake, CN II-XII Intact, Normal Gait, Oriented x3 Neuro motor strength exam: Left Upper Extremity: 5, Right Upper Extremity: 5, Left Lower Extremity: 5, Right Lower Extremity: 5 - Psychiatric Exam Psychiatric exam: Normal Affect, Normal Mood - Skin Skin Exam: Dry, Intact, Normal Color, Warm Assessment and Plan - Assessment and Plan (Free Text) Plan: This is 81 year old male with history of CAD s/p stents x 2, HLD, former smoker , paroxysmal atrial fibrillation, pituitary adenoma and macular degeneration who got admitted for evaluation of palpitations and found to have paroxysmal atrial fibrillation. 1-Paroxysmal atrial fibrillation: Her CHADSVASC score is 5. Continue heparin for now. Will start eliquis tomorrow and discontinue heparin. Her HR is controlled. Atrial fib converted to sinus rhythm today. Cardizem stopped. Continue metoprolol. Her thyroid function is normal. Last echo from 2014 showed EF of 40% with mild MR and TR. Serial troponins are normal. Patient needs to stay in telemtery floor for another 24 hours for monitoring. 2-CAD s/p stent placement: Start brilinta and stop aspirin as per jewelry bearing maker. Will update patients private jewelry bearing maker tomorrow as well. 3-Dyslipidemia: Lipid panel revealed elevated LDL however she is refusing cholesterol lowering pill due to side effects. 4-GI prophylaxis: Continue protonix. 5-DVT prophylaxis: continue heparin. 6-Chronic CHF with systolic dysfunction (EF~40%): Continue small dose of lasix. BNP was 1700 however patient does not have any shortness of breath, rales or peripheral edema. Will do echocardiogram. Dispo:Upon discharge patient will follow up with Dr Greenberg and Dr Grant. Dr Jarret Aj
[2017-01-23] MEDS: cefTRIAXone 1 gm 1 GM/100 ML BAG IVPB SCH (20:51)
[2017-01-24 06:56] LABS: ADD MANUAL DIFF? NO
[2017-01-24 07:12] LABS: BASO # 0.05 K/mm3 (0.0-2.0); BASO % 0.8 % (0.0-3.0); EOS # 0.3 (0.0-0.7); EOS % 3.9 % (1.5-5.0); GRAN # 3.96 (1.4-6.5); GRAN % 59.7 % (50.0-68.0); HEMATOCRIT 37.5 % (36.0-48.0); LYMPH # 1.7 (1.2-3.4); LYMPH % 25.3 % (22.0-35.0); MEAN CELL VOLUME 92.6 fL (80.0-105.0); MEAN CORPUSCULAR HEMOGLOBIN 30.4 pg (25.0-35.0); MEAN CORPUSCULAR HGB CONC 32.8 g/dl (31.0-37.0); MEAN PLATELET VOLUME 11.1 fl (7.0-11.0); MONO # 0.7 (0.1-0.6); MONO % 10.3 % (1.0-6.0); PLATELET COUNT 211 10^3/uL (120.0-450.0); RED CELL DISTRIBUTION WIDTH 14.2 % (11.5-14.5); WHITE BLOOD COUNT 6.6 10^3/ul (4.5-11.0)
[2017-01-24 07:29] LABS: INR 1.06 (0.93-1.08)
[2017-01-24 07:30] LABS: PARTIAL THROMBOPLASTIN TIME 79.7 Seconds (23.7-30.8)
[2017-01-24 07:44] LABS: ALKALINE PHOSPHATASE 60 U/L (38-133); ALT/SGPT 35 U/L (7-56); AST/SGOT 34 U/L (15-39); BILIRUBIN,TOTAL 0.5 mg/dL (0.2-1.3); BLOOD UREA NITROGEN 17 mg/dL (7-21); CALCIUM 9.1 mg/dL (8.4-10.5); CARBON DIOXIDE 32 mmol/L (21-33); CHLORIDE 102 mmol/L (98-107); GFR AFRICAN-AMERICAN > 60; GLUCOSE,RANDOM 82 mg/dL (70-110); POTASSIUM 4.4 mmol/L (3.6-5.0); SODIUM 140 mmol/L (132-148); TOTAL PROTEIN 7.1 g/dL (5.8-8.3)
--- NOTE | 2017-01-24 09:46 | CP.PCM.PN ---
Subjective - Date & Time of Evaluation Date of Evaluation: 01/23/17 Time of Evaluation: 07:00 - Subjective Subjective: Stable on 2R. No CP or SOB. Not dizzy now. V/S noted. PAF during the night> RSR now PE: Lungs: clear Cor.: S1S2 Abd.: soft Ext.: no edema Neuro.: alert I/O= 1416/900 Labs noted: PTT=69.6, TSH, T4 are NL Urine + E. coli Objective - Vital Signs/Intake and Output Vital Signs (last 24 hours): Temp Pulse Resp BP Pulse Ox 98 F 77 20 145/98 H 98 01/23/17 06:00 01/23/17 06:00 01/23/17 06:00 01/23/17 06:00 01/23/17 06:00 Intake and Output: 01/23/17 01/23/17 06:59 18:59 Intake Total 696 Balance 696 - Medications Medications: Current Medications Aspirin (Ecotrin) 81 mg PO 0800 [facility] Last Admin: 01/23/17 07:48 Dose: 81 mg Clopidogrel Bisulfate (Plavix) 75 mg PO 0800 [facility] Last Admin: 01/23/17 07:48 Dose: Not Given Furosemide (Lasix) 20 mg PO DAILY [facility] Last Admin: 01/22/17 09:58 Dose: 20 mg diltiaZEM IVPB 100mg in NS (Cardizem 100mg In Ns) 100 mls @ 5 mls/hr IV .Q20H PRN; Protocol; 5 MG/HR PRN Reason: TITRATE PER MD ORDER Last Admin: 01/21/17 16:45 Dose: 5 mls/hr Heparin Sodium/Sodium Chloride (Heparin 50480 Units/250ml 1/2 Normal Saline) 25 ,000 units in 250 mls @ 9.079 mls/hr IV .Q24H PRN; Protocol; 18 UNITS/KG/HR PRN Reason: ADJUST RATE PER PROTOCOL Last Admin: 01/23/17 00:41 Dose: 13 units/kg/hr, 6.557 mls/hr Metoprolol Tartrate (Lopressor) 25 mg PO BID [facility] Pantoprazole Sodium (Protonix Ec Tab) 40 mg PO DAILY [facility] Last Admin: 01/22/17 09:56 Dose: 40 mg - Labs Labs: 01/22/17 07:00 01/22/17 07:00 PT 12.0 Seconds (9.9-11.8) H 01/23/17 06:50 INR 1.11 (0.93-1.08) H 01/23/17 06:50 APTT 69.6 Seconds (23.7-30.8) H 01/23/17 06:50 Assessment and Plan - Assessment and Plan (Free Text) Plan: Assessment: PAF UTI Chronic Dizziness CAD/NE/PCI 2016 CHF Pituitary microadenoma Viteous hemorrhage Sciatica Anxiety Multiple medication Intolerences Plan: Metoprolol 25 BID Switch Plavix to Brilinta trial. She thinks that Plavix causes her dizziness CHADS score ~ 5. Consider A/C in addition to Plavix/Brilinta to prevent embolic episodes/stroke. If A/C will d/c ASA. Continue tel for now OOB/PT
--- NOTE | 2017-01-24 09:56 | CP.PCM.PN ---
Subjective - Date & Time of Evaluation Date of Evaluation: 01/24/17 Time of Evaluation: 07:00 - Subjective Subjective: Stable on 2R. No CP or SOB. Not dizzy now but on and off. says the meds are causing it. V/S noted. RSR PE: Lungs: clear Cor.: S1S2 Abd.: soft Ext.: no edema Neuro.: alert I/O= 2220/3150 Labs noted: PTT= 79 Urine + E. coli Objective - Vital Signs/Intake and Output Vital Signs (last 24 hours): Temp Pulse Resp BP Pulse Ox 97.6 F 63 18 148/93 H 96 01/24/17 06:00 01/24/17 06:00 01/24/17 06:00 01/24/17 06:00 01/24/17 06:00 Intake and Output: 01/24/17 01/24/17 06:59 18:59 Intake Total 900 Output Total 1550 Balance -650 - Medications Medications: Current Medications Aspirin (Ecotrin) 81 mg PO 0800 [facility] Last Admin: 01/24/17 08:46 Dose: 81 mg Furosemide (Lasix) 20 mg PO DAILY [facility] Last Admin: 01/23/17 10:21 Dose: 20 mg diltiaZEM IVPB 100mg in NS (Cardizem 100mg In Ns) 100 mls @ 5 mls/hr IV .Q20H PRN; Protocol; 5 MG/HR PRN Reason: TITRATE PER MD ORDER Last Admin: 01/21/17 16:45 Dose: 5 mls/hr Heparin Sodium/Sodium Chloride (Heparin 30010 Units/250ml 1/2 Normal Saline) 25 ,000 units in 250 mls @ 9.079 mls/hr IV .Q24H PRN; Protocol; 18 UNITS/KG/HR PRN Reason: ADJUST RATE PER PROTOCOL Last Admin: 01/23/17 00:41 Dose: 13 units/kg/hr, 6.557 mls/hr Ceftriaxone Sodium (Rocephin 1 Gram Ivpb) 1 gm in 100 mls @ 100 mls/hr IVPB DAILY [facility] PRN Reason: Protocol Last Admin: 01/23/17 20:51 Dose: 100 mls/hr Metoprolol Tartrate (Lopressor) 25 mg PO BID [facility] Last Admin: 01/23/17 17:31 Dose: 25 mg Pantoprazole Sodium (Protonix Ec Tab) 40 mg PO DAILY [facility] Last Admin: 01/23/17 10:21 Dose: 40 mg Ticagrelor (Brilinta) 90 mg PO BID [facility] Last Admin: 01/23/17 17:31 Dose: 90 mg - Labs Labs: 01/24/17 06:40 01/24/17 06:40 PT 11.4 Seconds (9.9-11.8) 01/24/17 06:40 INR 1.06 (0.93-1.08) 01/24/17 06:40 APTT 79.7 Seconds (23.7-30.8) H* 01/24/17 06:40 Assessment and Plan - Assessment and Plan (Free Text) Plan: Assessment: PAF UTI Chronic Dizziness CAD/NC/PCI 2016 CHF Pituitary microadenoma Viteous hemorrhage Sciatica Anxiety Multiple medication Intolerences Plan: Metoprolol 25 BID Switch Plavix to Brilinta trial. She thinks that Plavix causes her dizziness CHADS score ~ 5. Consider A/C in addition to Plavix/Brilinta to prevent embolic episodes/stroke. If she will be d/c on Eliquis or other A/C, would d/c ASA. Continue tel for now OOB/PT Check echo D/W Dr. Greenberg and arrange prompt f/u post d/c. Case D/W Drs. Aj and Makenzie
[2017-01-24] MEDS: Pantoprazole 40 mg EC Tab PO SCH (10:36)
[2017-01-24] MEDS: cefTRIAXone 1 gm 1 GM/100 ML BAG IVPB SCH (10:40)
--- NOTE | 2017-01-24 11:45 | CT ---
PROCEDURE: CT HEAD WITHOUT CONTRAST. HISTORY: dizziness COMPARISON: 07/20/2016. TECHNIQUE: Axial computed tomography images were obtained through the head/brain without intravenous contrast. Radiation dose: Total exam DLP = 723.49 mGy-cm. This CT exam was performed using one or more of the following dose reduction techniques: Automated exposure control, adjustment of the mA and/or kV according to patient size, and/or use of iterative reconstruction technique. FINDINGS: HEMORRHAGE: No intracranial hemorrhage. BRAIN: No Pituitary mass similar to that seen on the prior CT scan and confirmed that on brain MRI performed 05/18/2016. Possibilities include pituitary macro adenoma, a meningioma. Age related senescent change VENTRICLES: Unremarkable. No hydrocephalus. CALVARIUM: Unremarkable. PARANASAL SINUSES: Unremarkable as visualized. No significant inflammatory changes. MASTOID AIR CELLS: Unremarkable as visualized. No inflammatory changes. OTHER FINDINGS: None. IMPRESSION: Stable sellar/ suprasellar mass. No acute intracranial abnormalities. No significant findings to account for the clinical presentation. No significant interval change compared to the prior examination(s).
[2017-01-24 12:11] VITALS: O2SAT 98
[2017-01-24 12:46] VITALS: BP 106/73
[2017-01-24 12:56] VITALS: RESP 17; TEMP 97.5
[2017-01-24 14:30] VITALS: PULSE 82
--- NOTE | 2017-01-24 16:04 | CP.PCM.DIS ---
<Nicole Bruno - Last Filed: 01/24/17 16:24> Provider - Provider Date of Admission: 01/21/17 15:32 Attending physician: Jackelyn Banegas MD Primary care physician: NO PRIMARY CARE PROVIDER Time Spent in preparation of Discharge (in minutes): 60 Hospital Course - Lab Results Lab Results: Most Recent Lab Values WBC 6.6 10^3/ul (4.5-11.0) 01/24/17 06:40 RBC 4.05 10^6/uL (3.5-6.1) 01/24/17 06:40 Hgb 12.3 gm/dL (12.0-16.0) 01/24/17 06:40 Hct 37.5 % (36.0-48.0) 01/24/17 06:40 MCV 92.6 fL (80.0-105.0) 01/24/17 06:40 MCH 30.4 pg (25.0-35.0) 01/24/17 06:40 MCHC 32.8 g/dl (31.0-37.0) 01/24/17 06:40 RDW 14.2 % (11.5-14.5) 01/24/17 06:40 Plt Count 211 10^3/uL (120.0-450.0) 01/24/17 06:40 MPV 11.1 fl (7.0-11.0) H 01/24/17 06:40 Gran % 59.7 % (50.0-68.0) 01/24/17 06:40 Lymph % (Auto) 25.3 % (22.0-35.0) 01/24/17 06:40 [place] % (Auto) 10.3 % (1.0-6.0) H 01/24/17 06:40 Eos % (Auto) 3.9 % (1.5-5.0) 01/24/17 06:40 Baso % (Auto) 0.8 % (0.0-3.0) 01/24/17 06:40 Gran # 3.96 (1.4-6.5) 01/24/17 06:40 Lymph # 1.7 (1.2-3.4) 01/24/17 06:40 [place] # 0.7 (0.1-0.6) H 01/24/17 06:40 Eos # 0.3 (0.0-0.7) 01/24/17 06:40 Baso # 0.05 K/mm3 (0.0-2.0) 01/24/17 06:40 PT 11.4 Seconds (9.9-11.8) 01/24/17 06:40 INR 1.06 (0.93-1.08) 01/24/17 06:40 APTT 79.7 Seconds (23.7-30.8) H* 01/24/17 06:40 Sodium 140 mmol/L (132-148) 01/24/17 06:40 Potassium 4.4 mmol/L (3.6-5.0) 01/24/17 06:40 Chloride 102 mmol/L (98-107) 01/24/17 06:40 Carbon Dioxide 32 mmol/L (21-33) 01/24/17 06:40 Anion Gap 10 (10-20) 01/24/17 06:40 BUN 17 mg/dL (7-21) 01/24/17 06:40 Creatinine 0.8 mg/dL (0.5-1.4) 01/24/17 06:40 Est GFR ( Amer) > 60 01/24/17 06:40 Est GFR (Non-Af Amer) > 60 01/24/17 06:40 Random Glucose 82 mg/dL (70-110) 01/24/17 06:40 Hemoglobin A1c 5.8 % (4.2-6.5) 01/23/17 06:50 Calcium 9.1 mg/dL (8.4-10.5) 01/24/17 06:40 Total Bilirubin 0.5 mg/dL (0.2-1.3) 01/24/17 06:40 AST 34 U/L (15-39) 01/24/17 06:40 ALT 35 U/L (7-56) 01/24/17 06:40 Alkaline Phosphatase 60 U/L (38-133) 01/24/17 06:40 Lactate Dehydrogenase 576 U/L (333-699) 01/21/17 12:20 Total Creatine Kinase 82 U/L (35-230) 01/21/17 12:20 Troponin I 0.05 ng/mL 01/22/17 07:00 NT-Pro-B Natriuret Pep 1700 pg/mL (0-450) H 01/21/17 12:20 Total Protein 7.1 g/dL (5.8-8.3) 01/24/17 06:40 Albumin 3.6 g/dL (3.0-4.8) 01/24/17 06:40 Globulin 3.5 gm/dL 01/24/17 06:40 Albumin/Globulin Ratio 1.0 (1.1-1.8) L 01/24/17 06:40 Triglycerides 41 mg/dL (35-160) 01/22/17 07:00 Cholesterol 214 mg/dL (130-200) H 01/22/17 07:00 LDL Cholesterol Direct 141 mg/dL (0-129) H 01/22/17 07:00 HDL Cholesterol 54 mg/dL (29-60) 01/22/17 07:00 Thyroxine (T4) 5.9 ug/dL (5.5-11.0) 01/22/17 07:00 TSH 3rd Generation 3.15 mIU/mL (0.46-4.68) 01/22/17 07:00 Urine Color Yellow (YELLOW) 01/21/17 12:20 Urine Appearance Clear (CLEAR) 01/21/17 12:20 Urine pH 6.0 (4.7-8.0) 01/21/17 12:20 Ur Specific [place] <= 1.005 (1.005-1.035) 01/21/17 12:20 Urine Protein Negative mg/dL (<30 mg/dL) 01/21/17 12:20 Urine Glucose (UA) Negative mg/dL (NEGATIVE) 01/21/17 12:20 Urine Ketones Negative mg/dL (NEGATIVE) 01/21/17 12:20 Urine Blood Trace-lysed (NEGATIVE) H 01/21/17 12:20 Urine Nitrate Positive (NEGATIVE) H 01/21/17 12:20 Urine Bilirubin Negative (NEGATIVE) 01/21/17 12:20 Urine Urobilinogen 0.2 E.U./dL (<1 E.U./dL) 01/21/17 12:20 Ur Leukocyte Esterase Moderate [place]/uL (NEGATIVE) H 01/21/17 12:20 Urine RBC 0 - 2 /hpf (0-2) 01/21/17 12:20 Urine WBC 25 - 30 /hpf (0-6) 01/21/17 12:20 Ur Epithelial Cells 0 - 2 /hpf (0-5) 01/21/17 12:20 Urine Bacteria Mod (NEG) 01/21/17 12:20 - Hospital Course Hospital Course: 81 year old male with history of CAD s/p stents x 2, HLD, former smoker, paroxysmal atrial fibrillation, pituitary adenoma and macular degeneration who got admitted for evaluation of palpitations and found to have paroxysmal atrial fibrillation. Her CHADSVASC score was 5 she was started on heparin adm cardizem drip. Cardiology was consulted. Patient's atrial fib converted to sinus rhythm, heart rate was controlled. Cardizem drip was stopped, patient was started on metoprolol. Her thyroid function is normal. Last echo from 2014 showed EF of 40 % with mild MR and TR. Serial troponins were normal. Patient complained of dizziness due to plavix, she was started on brilinta and her aspirin and plavix was stopped as per governor assembler hydraulic. Her private governor assembler hydraulic, Dr Greenberg ) was updated. Patient was found to have elevated lipid panel, however she refused cholesterol lowering pill due to side effects. Eliquis was started and heparin was discontinue. Urine cultures were positive for ecoli, patient was started on cipro, patient refused ceftriaxone due to sideeffects. Head CT is unchanged from baseline. PT recommended TCU. Patient is to be transfer to TCU for further therapy. Discharge Exam - Head Exam Head Exam: ATRAUMATIC, NORMAL INSPECTION, NORMOCEPHALIC - Eye Exam Eye Exam: Normal appearance - ENT Exam ENT Exam: Mucous Membranes Moist - Respiratory Exam Respiratory Exam: Clear to PA & Lateral, NORMAL BREATHING PATTERN, UNREMARKABLE. absent: Rales, Rhonchi, Wheezes, Respiratory Distress - Cardiovascular Exam Cardiovascular Exam: REGULAR RHYTHM. absent: Tachycardia, Systolic Murmur - GI/Abdominal Exam GI & Abdominal Exam: Normal Bowel Sounds, Soft, Unremarkable. absent: Distended , Firm, Guarding, Tenderness - Extremities Exam Extremities exam: normal inspection - Neurological Exam Neurological exam: Alert, Oriented x3 - Skin Skin Exam: Dry, Intact, Normal Color, Warm Discharge Plan - Follow Up Plan Condition: FAIR Disposition: HOME/ ROUTINE Instructions: Atrial Fibrillation (DC), Chest Pain (DC), Palpitations (DC), Urinary Tract Infection in Women (DC), Dizziness (GEN) Additional Instructions: Follow up with your primary provider. Call for an appointment. If signs and symptoms return, call 911 or go to your nearest emergency department for care. See care notes provided for further instructions on your continuing care. Referrals: [facility], [Non-Staff] - <Jackelyn Banegas - Last Filed: 01/24/17 17:14> Provider - Provider Date of Admission: 01/21/17 15:32 Attending physician: Jackelyn Banegas MD Primary care physician: NO PRIMARY CARE PROVIDER Hospital Course - Lab Results Lab Results: Most Recent Lab Values WBC 6.6 10^3/ul (4.5-11.0) 01/24/17 06:40 RBC 4.05 10^6/uL (3.5-6.1) 01/24/17 06:40 Hgb 12.3 gm/dL (12.0-16.0) 01/24/17 06:40 Hct 37.5 % (36.0-48.0) 01/24/17 06:40 MCV 92.6 fL (80.0-105.0) 01/24/17 06:40 MCH 30.4 pg (25.0-35.0) 01/24/17 06:40 MCHC 32.8 g/dl (31.0-37.0) 01/24/17 06:40 RDW 14.2 % (11.5-14.5) 01/24/17 06:40 Plt Count 211 10^3/uL (120.0-450.0) 01/24/17 06:40 MPV 11.1 fl (7.0-11.0) H 01/24/17 06:40 Gran % 59.7 % (50.0-68.0) 01/24/17 06:40 Lymph % (Auto) 25.3 % (22.0-35.0) 01/24/17 06:40 [place] % (Auto) 10.3 % (1.0-6.0) H 01/24/17 06:40 Eos % (Auto) 3.9 % (1.5-5.0) 01/24/17 06:40 Baso % (Auto) 0.8 % (0.0-3.0) 01/24/17 06:40 Gran # 3.96 (1.4-6.5) 01/24/17 06:40 Lymph # 1.7 (1.2-3.4) 01/24/17 06:40 [place] # 0.7 (0.1-0.6) H 01/24/17 06:40 Eos # 0.3 (0.0-0.7) 01/24/17 06:40 Baso # 0.05 K/mm3 (0.0-2.0) 01/24/17 06:40 PT 11.4 Seconds (9.9-11.8) 01/24/17 06:40 INR 1.06 (0.93-1.08) 01/24/17 06:40 APTT 79.7 Seconds (23.7-30.8) H* 01/24/17 06:40 Sodium 140 mmol/L (132-148) 01/24/17 06:40 Potassium 4.4 mmol/L (3.6-5.0) 01/24/17 06:40 Chloride 102 mmol/L (98-107) 01/24/17 06:40 Carbon Dioxide 32 mmol/L (21-33) 01/24/17 06:40 Anion Gap 10 (10-20) 01/24/17 06:40 BUN 17 mg/dL (7-21) 01/24/17 06:40 Creatinine 0.8 mg/dL (0.5-1.4) 01/24/17 06:40 Est GFR ( Amer) > 60 01/24/17 06:40 Est GFR (Non-Af Amer) > 60 01/24/17 06:40 Random Glucose 82 mg/dL (70-110) 01/24/17 06:40 Hemoglobin A1c 5.8 % (4.2-6.5) 01/24/17 06:40 Calcium 9.1 mg/dL (8.4-10.5) 01/24/17 06:40 Total Bilirubin 0.5 mg/dL (0.2-1.3) 01/24/17 06:40 AST 34 U/L (15-39) 01/24/17 06:40 ALT 35 U/L (7-56) 01/24/17 06:40 Alkaline Phosphatase 60 U/L (38-133) 01/24/17 06:40 Lactate Dehydrogenase 576 U/L (333-699) 01/21/17 12:20 Total Creatine Kinase 82 U/L (35-230) 01/21/17 12:20 Troponin I 0.05 ng/mL 01/22/17 07:00 NT-Pro-B Natriuret Pep 1700 pg/mL (0-450) H 01/21/17 12:20 Total Protein 7.1 g/dL (5.8-8.3) 01/24/17 06:40 Albumin 3.6 g/dL (3.0-4.8) 01/24/17 06:40 Globulin 3.5 gm/dL 01/24/17 06:40 Albumin/Globulin Ratio 1.0 (1.1-1.8) L 01/24/17 06:40 Triglycerides 41 mg/dL (35-160) 01/22/17 07:00 Cholesterol 214 mg/dL (130-200) H 01/22/17 07:00 LDL Cholesterol Direct 141 mg/dL (0-129) H 01/22/17 07:00 HDL Cholesterol 54 mg/dL (29-60) 01/22/17 07:00 Thyroxine (T4) 5.9 ug/dL (5.5-11.0) 01/22/17 07:00 TSH 3rd Generation 3.15 mIU/mL (0.46-4.68) 01/22/17 07:00 Urine Color Yellow (YELLOW) 01/21/17 12:20 Urine Appearance Clear (CLEAR) 01/21/17 12:20 Urine pH 6.0 (4.7-8.0) 01/21/17 12:20 Ur Specific [place] <= 1.005 (1.005-1.035) 01/21/17 12:20 Urine Protein Negative mg/dL (<30 mg/dL) 01/21/17 12:20 Urine Glucose (UA) Negative mg/dL (NEGATIVE) 01/21/17 12:20 Urine Ketones Negative mg/dL (NEGATIVE) 01/21/17 12:20 Urine Blood Trace-lysed (NEGATIVE) H 01/21/17 12:20 Urine Nitrate Positive (NEGATIVE) H 01/21/17 12:20 Urine Bilirubin Negative (NEGATIVE) 01/21/17 12:20 Urine Urobilinogen 0.2 E.U./dL (<1 E.U./dL) 01/21/17 12:20 Ur Leukocyte Esterase Moderate [place]/uL (NEGATIVE) H 01/21/17 12:20 Urine RBC 0 - 2 /hpf (0-2) 01/21/17 12:20 Urine WBC 25 - 30 /hpf (0-6) 01/21/17 12:20 Ur Epithelial Cells 0 - 2 /hpf (0-5) 01/21/17 12:20 Urine Bacteria Mod (NEG) 01/21/17 12:20 Attending/Attestation - Attestation I have personally seen and examined this patient.: Yes I have fully participated in the care of the patient.: Yes I have reviewed all pertinent clinical information, including history, physical exam and plan: Yes Notes (Text): 01/24/17 17:12 Attending note; Patient seen and examined with resident. Patient is a 81-year-old female admitted with paroxysmal A. fib. Started on Eliquis today. Continue Brillanta instead of plavix. Aspirin discontinued per cardiology . The risks and benefits explained to the patient in detail . Message left with patient's primary governor assembler hydraulic Dr. Greenberg. Echocardiogram ordered . Still complaining of some dizziness. CT head is negative. PT evaluation appreciated. Transfer the patient to TCU. Diagnosis; Paroxysmal A. fib Gait instability Cardiomyopathy
--- NOTE | 2017-01-25 10:05 | CARD ---
APPROVED REPORT EXAM: Two-dimensional and M-mode echocardiogram with Doppler and color Doppler. Other Information Quality : AverageRhythm : INDICATION Dizziness and Vertigo , Old MS 2D DIMENSIONS IVSd1.0 (0.7-1.1cm)LVDd4.2 (3.9-5.9cm) PWd1.0 (0.7-1.1cm)LVDs3.7 (2.5-4.0cm) FS (%) 13.0 %LVEF (%)28.0 (>50%) M-Mode DIMENSIONS Left Atrium (MM)2.30 (2.5-4.0cm)Aortic Root3.30 (2.2-3.7cm) Aortic Cusp Exc.1.80 (1.5-2.0cm) Aortic Valve AoV Peak Auuxkrri60.5cm/sAoV VTI18.2cmLVOT Peak Rkiwgtbq97.1cm/s LVOT VTI14.30cm Mitral Valve MV E Hnhqryon25.3cm/sMV A Dcstftgs979.0cm/sE/A ratio0.5 TDI Lateral E' Peak V4.19cm/sMedial E' Peak V3.70cm/sE/Lateral E'16.1 E/Medial E'18.2 Tricuspid Valve TR Peak Rquwlbia646js/sRAP FGHELPUL47dvMgIW Peak Gr.30mmHg [id number] LEFT VENTRICLE The left ventricle is normal size. 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 Left ventricle systolic function is severely impaired. The Ejection Fraction is 25-30%. 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 RIGHT VENTRICLE The right ventricle is normal size. ATRIA The left atrium size is normal. The right atrium size is normal. The interatrial septum is intact with no evidence for an atrial septal defect. AORTIC VALVE The aortic valve is normal in structure. MITRAL VALVE The mitral valve is moderately thickened but opens well. Mitral annular calcification is moderate. Mitral regurgitation is trace. TRICUSPID VALVE The tricuspid valve is normal in structure. There is mild tricuspid regurgitation. PULMONIC VALVE The pulmonic valve is not well visualized. GREAT VESSELS The aortic root is normal in size. PERICARDIAL EFFUSION There is no pericardial effusion. <Conclusion> The left ventricle is normal size. Left ventricle systolic function is severely impaired. The Ejection Fraction is 25-30%. 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
== END 2017-01-24 17:02 | DRG 309 ==
LOC: ED 12:00 → ERH 15:32 → 2RSO 20:46
PROVIDERS: ADMIT Internal Medicine; ATTEND Internal Medicine
DX: I48.0 Paroxysmal atrial fibrillation (principal); I11.0 Hypertensive heart disease with heart failure; I50.22 Chronic systolic (congestive) heart failure; N39.0 Urinary tract infection, site not specified; I25.10 Atherosclerotic heart disease of native coronary artery without angina pectoris; I42.9 Cardiomyopathy, unspecified; D35.2 Benign neoplasm of pituitary gland; E78.5 Hyperlipidemia, unspecified; H35.30 Unspecified macular degeneration; F41.9 Anxiety disorder, unspecified; M54.30 Sciatica, unspecified side; R42 Dizziness and giddiness; R26.9 Unspecified abnormalities of gait and mobility; I25.2 Old myocardial infarction; Z95.5 Presence of coronary angioplasty implant and graft; Z87.891 Personal history of nicotine dependence

== ENCOUNTER 2017-01-24 17:02 | Inpatient (IN) | payer OTHER, MEDICARE ==
[2017-01-24] MEDS ORDERED: Pneumococcal 23-Valent Vaccine IM ONE (21:58)
[2017-01-24 21:59] VITALS: BMI 20.5
[2017-01-25] MEDS: Pantoprazole 40 mg EC Tab PO SCH (05:52)
[2017-01-25] MEDS ORDERED: cefTRIAXone 1 gm 1 GM/100 ML BAG IVPB SCH ×2 (06:00→10:00)
--- NOTE | 2017-01-25 06:41 | CP.PCM.PN ---
Subjective - Date & Time of Evaluation Date of Evaluation: 01/25/17 Time of Evaluation: 06:41 - Subjective Subjective: # 22 angiocath was inserted in right forearm. Dx:Poor venous access. Objective - Vital Signs/Intake and Output Vital Signs (last 24 hours): Temp Pulse Resp BP Pulse Ox 68 16 122/72 01/24/17 21:37 01/24/17 21:37 01/24/17 21:37 - Medications Medications: Current Medications Apixaban (Eliquis) 2.5 mg PO BID JEFF PRN Reason: Protocol Last Admin: 01/24/17 20:13 Dose: 2.5 mg Ciprofloxacin (Cipro) 250 mg PO Q12 JEFF PRN Reason: Protocol Stop: 01/25/17 17:57 Last Admin: 01/24/17 22:04 Dose: 250 mg Furosemide (Lasix) 20 mg PO DAILY JEFF PRN Reason: Protocol Ceftriaxone Sodium (Rocephin 1 Gram Ivpb) 1 gm in 100 mls @ 100 mls/hr IVPB 0600 JEFF PRN Reason: Protocol Last Admin: 01/25/17 05:52 Dose: 100 mls/hr Metoprolol Tartrate (Lopressor) 25 mg PO 0800,1800 JEFF PRN Reason: Protocol Last Admin: 01/24/17 20:14 Dose: 25 mg Pantoprazole Sodium (Protonix Ec Tab) 40 mg PO 0630 JEFF PRN Reason: Protocol Last Admin: 01/25/17 05:52 Dose: 40 mg Ticagrelor (Brilinta) 90 mg PO BID JEFF PRN Reason: Protocol Last Admin: 01/24/17 22:04 Dose: 90 mg
[2017-01-25 08:48] LABS: ADD MANUAL DIFF? NO
[2017-01-25 08:52] LABS: BASO # 0.03 K/mm3 (0.0-2.0); BASO % 0.4 % (0.0-3.0); EOS # 0.2 (0.0-0.7); EOS % 2.5 % (1.5-5.0); GRAN # 4.46 (1.4-6.5); GRAN % 62.9 % (50.0-68.0); HEMATOCRIT 38.7 % (36.0-48.0); LYMPH # 1.9 (1.2-3.4); LYMPH % 27.2 % (22.0-35.0); MEAN CELL VOLUME 92.6 fL (80.0-105.0); MEAN CORPUSCULAR HEMOGLOBIN 30.6 pg (25.0-35.0); MEAN CORPUSCULAR HGB CONC 33.1 g/dl (31.0-37.0); MONO # 0.5 (0.1-0.6); PLATELET COUNT 203 10^3/uL (120.0-450.0); RED CELL DISTRIBUTION WIDTH 14.2 % (11.5-14.5); WHITE BLOOD COUNT 7.1 10^3/ul (4.5-11.0)
[2017-01-25 09:04] LABS: ALB/GLOB RATIO 1.1 (1.1-1.8); ALKALINE PHOSPHATASE 63 U/L (38-133); ALT/SGPT 44 U/L (7-56); AST/SGOT 51 U/L (15-39); BILIRUBIN,TOTAL 0.4 mg/dL (0.2-1.3); BLOOD UREA NITROGEN 16 mg/dL (7-21); CALCIUM 9.1 mg/dL (8.4-10.5); CARBON DIOXIDE 30 mmol/L (21-33); CHLORIDE 100 mmol/L (95-110); GFR AFRICAN-AMERICAN > 60; GLUCOSE,RANDOM 135 mg/dL (70-110); POTASSIUM 4.6 mmol/L (3.6-5.0); SODIUM 140 mmol/L (132-148); TOTAL PROTEIN 7.5 g/dL (5.8-8.3)
--- NOTE | 2017-01-25 09:19 | CP.PCM.HP ---
<Nicole Bruno - Last Filed: 01/25/17 14:49> History of Present Illness - History of Present Illness History of Present Illness: PGY-1 H&P 81 year old female with past medical history of CAD s/p stents x 2, HLD, paroxysmal a fib, pituitary adenoma and macular degeneration intially presented to the ED for tachycardia. Patient was found to be tachycardic when she went to see her health companion, Dr. Greenberg for a scheduled visit. EKG showed a. fib, patient was started on appropiate medications. Patient also reported dizziness. She beleived it to be from her plaxiv, health companion changed her medications. PT recommended TCU. Patient was transfered to TCU yesterday evening. This morning patient denies having any dizziness, CP, SOB, abd pain, N/V/D/C, f/c, dysuria or increased urinary frequency. PMhx; CAD s/p stents x 2, HLD, paroxysmal a fib, pituitary adenoma and macular degeneration Sx; PCI with stents Social: former smoker, quit 40 yrs ago. Daily ETOH use 1 glass of wine. No drug use Allergies: amlodipine, betamethasone, candesartan, clindamycin, clobetasol, hydroxyzine, lisinopril, metoprolol, nebivolol, nisoldipine, olmesartan, rofecoxib PMD: Dr. Busby Soap Drier Tender: Dr. Greenberg ([phone]). She was seen by Dr. Hickman in past. Present on Admission - Present on Admission Any Indicators Present on Admission: No Review of Systems - Constitutional Constitutional: absent: Chills, Fever - EENT Eyes: absent: Change in Vision Nose/Mouth/Throat: absent: Sore Throat - Cardiovascular Cardiovascular: absent: Chest Pain, Dyspnea, Lightheadedness, Orthopnea - Respiratory Respiratory: absent: Cough, Dyspnea - Gastrointestinal Gastrointestinal: absent: Abdominal Pain, Constipation, Diarrhea, Nausea, Vomiting - Genitourinary Genitourinary: absent: Difficulty Urinating, Dysuria - Musculoskeletal Musculoskeletal: absent: Muscle Weakness, Myalgias, Numbness, Tingling - Integumentary Integumentary: absent: Rash, Swelling - Neurological Neurological: absent: Dizziness, Numbness, Headaches - Hematologic/Lymphatic Hematologic: absent: Easy Bleeding, Easy Bruising Past Patient History - Past Social History Smoking Status: Former Smoker - CARDIAC Hx Cardiac Disorders: Yes ([place] w/ LAD stent (04/18/2015)) Hx Congestive Heart Failure: Yes Hx Hypertension: Yes - PULMONARY Hx Respiratory Disorders: No - NEUROLOGICAL Hx Neurological Disorder: Yes (SYNCOPE) Hx Dizziness: Yes Hx Migraine: Yes - HEENT Hx HEENT Problems: Yes Hx Macular Degeneration: Yes (RIGHT EYE) - RENAL Hx Chronic Kidney Disease: No - ENDOCRINE/METABOLIC Hx Endocrine Disorders: No - HEMATOLOGICAL/ONCOLOGICAL Hx Blood Disorders: No - INTEGUMENTARY Hx Dermatological Problems: No - MUSCULOSKELETAL/RHEUMATOLOGICAL Hx Falls: No - GASTROINTESTINAL Hx Gastrointestinal Disorders: No - GENITOURINARY/GYNECOLOGICAL Hx Genitourinary Disorders: No Hx Reproductive Disorders: No - PSYCHIATRIC Hx Psychophysiologic Disorder: Yes Hx Anxiety: Yes Hx Substance Use: No - SURGICAL HISTORY Hx Surgeries: Yes (HEART STENTS X 3) Hx Cardiac Catheterization: Yes Hx Coronary Stent: Yes (X3 8--15) Hx Orthopedic Surgery: Yes (CHILDHOOD LEFT LEG.) - ANESTHESIA Hx Anesthesia: No Hx Anesthesia Reactions: No Hx Malignant Hyperthermia: No Meds Allergies/Adverse Reactions: Allergies Allergy/AdvReac Type Severity Reaction Status Date / Time amlodipine Allergy SHORTNESS Verified 01/24/17 21:36 OF BREATH betamethasone Allergy ANAPHYLAXIS Verified 01/24/17 21:36 candesartan Allergy ANAPHYLAXIS Verified 01/24/17 21:36 clindamycin Allergy ANAPHYLAXIS Verified 01/24/17 21:36 clobetasol Allergy ANAPHYLAXIS Verified 01/24/17 21:36 hydroxyzine Allergy ANAPHYLAXIS Verified 01/24/17 21:36 lisinopril Allergy ANAPHYLAXIS Verified 01/24/17 21:36 metoprolol Allergy SHORTNESS Verified 01/24/17 21:36 OF BREATH nebivolol HCl [From Bystolic] Allergy SHORTNESS Verified 01/24/17 21:36 OF BREATH nisoldipine Allergy ANAPHYLAXIS Verified 01/24/17 21:36 olmesartan medoxomil Allergy ANAPHYLAXIS Verified 01/24/17 21:36 [From Benicar] rofecoxib [From Vioxx] Allergy ANAPHYLAXIS Verified 01/24/17 21:36 Physical Exam - Constitutional Appears: Well, No Acute Distress - Head Exam Head Exam: ATRAUMATIC, NORMOCEPHALIC - Eye Exam Eye Exam: Normal appearance - ENT Exam ENT Exam: Mucous Membranes Moist - Respiratory Exam Respiratory Exam: Clear to Auscultation Bilateral, NORMAL BREATHING PATTERN. absent: Decreased Breath Sounds, Rales, Rhonchi, Wheezes, Respiratory Distress - Cardiovascular Exam Cardiovascular Exam: REGULAR RHYTHM. absent: Tachycardia, Diastolic murmur, Systolic Murmur - GI/Abdominal Exam GI & Abdominal Exam: Normal Bowel Sounds, Soft. absent: Distended, Firm, Guarding, Tenderness - Extremities Exam Extremities exam: Positive for: normal inspection. Negative for: pedal edema - Neurological Exam Neurological exam: Alert, Oriented x3 - Skin Skin Exam: Dry, Intact, Normal Color, Warm Results - Vital Signs Recent Vital Signs: Last Vital Signs Temp Pulse 68 01/24/17 21:37 Resp 16 01/24/17 21:37 BP 122/72 01/24/17 21:37 Pulse Ox - Labs Result Diagrams: 01/25/17 08:30 01/25/17 08:30 Labs: Laboratory Results - last 24 hr 01/25/17 01/25/17 08:30 08:30 WBC 7.1 RBC 4.18 Hgb 12.8 Hct 38.7 MCV 92.6 MCH 30.6 MCHC 33.1 RDW 14.2 Plt Count 203 MPV 11.0 Gran % 62.9 Lymph % (Auto) 27.2 [place] % (Auto) 7.0 H Eos % (Auto) 2.5 Baso % (Auto) 0.4 Gran # 4.46 Lymph # 1.9 [place] # 0.5 Eos # 0.2 Baso # 0.03 Sodium 140 Potassium 4.6 Chloride 100 Carbon Dioxide 30 Anion Gap 15 BUN 16 Creatinine 0.8 Est GFR ( Amer) > 60 Est GFR (Non-Af Amer) > 60 Random Glucose 135 H Calcium 9.1 Total Bilirubin 0.4 AST 51 H ALT 44 Alkaline Phosphatase 63 Total Protein 7.5 Albumin 3.8 Globulin 3.6 Albumin/Globulin Ratio 1.1 Assessment & Plan - Assessment and Plan (Free Text) Assessment: 81 year old male with history of CAD s/p stents x 2, HLD, former smoker, paroxysmal atrial fibrillation, pituitary adenoma and macular degeneration who was admitted for paroxymal a. fibrillation and transferred to TCU Plan: 1. Paroxysmal atrial fibrillation - Patients CHADSVASC score was 5 - started on eliqus - cont metoprolol for rate control - patient converted to normal sinus rhythm before being transferred to U - thyroid function is normal - repeat echo was completed on 01/24, read pending - echo from 2014 showed EF of 40% with mild MR and TR 2. CAD s/p stent placement - Start brilinta and stop aspirin as per health companion - patients private health companion was called and message was left 3. Dyslipidemia - Lipid panel revealed elevated LDL - patient is refusing cholesterol lowering pill due to side effects. 4. dizziness - head CT was unchanged - orthostatics were negative - consider holding lasix 5. Chronic CHF with systolic dysfunction - previous echo showed EF~40% - patient does not report sob - echo pending ppx - GI ppx- protonix - DVT ppx- eliquis Dispo:Upon discharge patient will follow up with Dr Greenberg and Dr Grant. <Jackelyn Banegas - Last Filed: 01/26/17 14:58> Results - Vital Signs Recent Vital Signs: Last Vital Signs Temp 98.8 F 01/26/17 10:00 Pulse 68 01/26/17 10:00 Resp 16 01/26/17 10:00 BP 123/83 01/26/17 10:00 Pulse Ox 99 01/26/17 10:00 - Labs Result Diagrams: 01/25/17 08:30 01/25/17 08:30 Attending/Attestation - Attestation I have personally seen and examined this patient.: Yes I have fully participated in the care of the patient.: Yes I have reviewed all pertinent clinical information: Yes Notes (Text): 01/26/17 14:56 Attending note; Patient seen and examined with resident. Patient is a 81-year-old female admitted with paroxysmal A. fib. rate controlled with by mouth metoprolol.Started on Eliquis. Continue Brillanta instead of plavix. Aspirin discontinued per cardiology . The risks and benefits explained to the patient in detail . Message left with patient's primary health companion Dr. Greenberg. Echocardiogram showed ejection fraction of [address] head is negative. PT evaluation appreciated. continue physical therapy. Upon discharge the patient will follow up with PMD Dr. Busby.
[2017-01-26] MEDS: Pantoprazole 40 mg EC Tab PO SCH (05:49)
[2017-01-26 10:17] VITALS: BP 123/83; PULSE 68; RESP 16; TEMP 98.8; O2SAT 99
--- NOTE | 2017-01-26 10:49 | CP.PCM.DIS ---
<Nicole Bruno - Last Filed: 01/28/17 12:17> Provider - Provider Date of Admission: 01/24/17 17:02 Attending physician: Jackelyn Banegas MD Primary care physician: NO PRIMARY CARE PROVIDER Time Spent in preparation of Discharge (in minutes): 60 Hospital Course - Lab Results Lab Results: Most Recent Lab Values WBC 7.1 10^3/ul (4.5-11.0) 01/25/17 08:30 RBC 4.18 10^6/uL (3.5-6.1) 01/25/17 08:30 Hgb 12.8 gm/dL (12.0-16.0) 01/25/17 08:30 Hct 38.7 % (36.0-48.0) 01/25/17 08:30 MCV 92.6 fL (80.0-105.0) 01/25/17 08:30 MCH 30.6 pg (25.0-35.0) 01/25/17 08:30 MCHC 33.1 g/dl (31.0-37.0) 01/25/17 08:30 RDW 14.2 % (11.5-14.5) 01/25/17 08:30 Plt Count 203 10^3/uL (120.0-450.0) 01/25/17 08:30 MPV 11.0 fl (7.0-11.0) 01/25/17 08:30 Gran % 62.9 % (50.0-68.0) 01/25/17 08:30 Lymph % (Auto) 27.2 % (22.0-35.0) 01/25/17 08:30 Cascade % (Auto) 7.0 % (1.0-6.0) H 01/25/17 08:30 Eos % (Auto) 2.5 % (1.5-5.0) 01/25/17 08:30 Baso % (Auto) 0.4 % (0.0-3.0) 01/25/17 08:30 Gran # 4.46 (1.4-6.5) 01/25/17 08:30 Lymph # 1.9 (1.2-3.4) 01/25/17 08:30 Cascade # 0.5 (0.1-0.6) 01/25/17 08:30 Eos # 0.2 (0.0-0.7) 01/25/17 08:30 Baso # 0.03 K/mm3 (0.0-2.0) 01/25/17 08:30 Sodium 140 mmol/L (132-148) 01/25/17 08:30 Potassium 4.6 mmol/L (3.6-5.0) 01/25/17 08:30 Chloride 100 mmol/L (95-110) 01/25/17 08:30 Carbon Dioxide 30 mmol/L (21-33) 01/25/17 08:30 Anion Gap 15 (10-20) 01/25/17 08:30 BUN 16 mg/dL (7-21) 01/25/17 08:30 Creatinine 0.8 mg/dL (0.5-1.4) 01/25/17 08:30 Est GFR ( Amer) > 60 01/25/17 08:30 Est GFR (Non-Af Amer) > 60 01/25/17 08:30 Random Glucose 135 mg/dL (70-110) H 01/25/17 08:30 Calcium 9.1 mg/dL (8.4-10.5) 01/25/17 08:30 Total Bilirubin 0.4 mg/dL (0.2-1.3) 01/25/17 08:30 AST 51 U/L (15-39) H 01/25/17 08:30 ALT 44 U/L (7-56) 01/25/17 08:30 Alkaline Phosphatase 63 U/L (38-133) 01/25/17 08:30 Total Protein 7.5 g/dL (5.8-8.3) 01/25/17 08:30 Albumin 3.8 g/dL (3.0-4.8) 01/25/17 08:30 Globulin 3.6 gm/dL 01/25/17 08:30 Albumin/Globulin Ratio 1.1 (1.1-1.8) 01/25/17 08:30 - Hospital Course Hospital Course: 81 year old female with history of CAD s/p stents x 2, HLD, former smoker, paroxysmal atrial fibrillation, pituitary adenoma and macular degeneration who was admitted for paroxymal a. fibrillation and transferred to TCU. Patient had paroxysmal atrial fibrillation. During her hospital course she was started on eliquis and metoprolol. Patient converted to normal sinus rhythm before being transferred to TCU. Patient was also placed on brilinta and stop aspirin and plavix as per manager metrology. Patient reported dizziness due to medications. PT recommended TCU. Patient is doing better. PT recommended discharge home. Upon discharge patient will follow up with Dr Greenberg and Dr Grant. Discharge Exam - Head Exam Head Exam: ATRAUMATIC, NORMOCEPHALIC - Eye Exam Eye Exam: Normal appearance - ENT Exam ENT Exam: Mucous Membranes Moist - Respiratory Exam Respiratory Exam: Clear to PA & Lateral, NORMAL BREATHING PATTERN, UNREMARKABLE. absent: Decreased Breath Sounds, Rales, Rhonchi, Wheezes, Respiratory Distress - Cardiovascular Exam Cardiovascular Exam: REGULAR RHYTHM. absent: Tachycardia, Diastolic murmur, Systolic Murmur - GI/Abdominal Exam GI & Abdominal Exam: Normal Bowel Sounds, Unremarkable. absent: Distended, Firm , Guarding, Tenderness - Extremities Exam Extremities exam: normal inspection - Neurological Exam Neurological exam: Alert, Oriented x3 - Skin Skin Exam: Dry, Intact, Normal Color, Warm Discharge Plan - Discharge Medications Prescriptions: Apixaban [Eliquis] 2.5 mg PO BID #40 tab Ciprofloxacin HCl [Cipro] 250 mg PO Q12 #14 tablet Metoprolol Tartrate [Lopressor] 25 mg PO 0800,1800 #40 tab Ticagrelor [Brilinta] 90 mg PO BID #40 tab - Follow Up Plan Condition: GOOD Disposition: HOME/ ROUTINE Instructions: Coronary Artery Disease (DC), Atrial Fibrillation (DC) Additional Instructions: Patient stable for discharge home. discharge instructions: - follow up with PMD, Dr. Busby in 3-5 days - follow up with cardiology, Dr. Greenberg on 01/27/17 New medications: - ciprofloxacin 250mg q12 for 7 days - eliquis 2.5mg BID - lopressor 25mg BID - brilinta 90mg BID continue lasix medication Referrals: Kody Busby MD [Staff Provider] - <Jackelyn Banegas - Last Filed: 01/28/17 14:39> Provider - Provider Date of Admission: 01/24/17 17:02 Attending physician: Jackelyn Banegas MD Primary care physician: NO PRIMARY CARE PROVIDER Hospital Course - Lab Results Lab Results: Most Recent Lab Values WBC 7.1 10^3/ul (4.5-11.0) 01/25/17 08:30 RBC 4.18 10^6/uL (3.5-6.1) 01/25/17 08:30 Hgb 12.8 gm/dL (12.0-16.0) 01/25/17 08:30 Hct 38.7 % (36.0-48.0) 01/25/17 08:30 MCV 92.6 fL (80.0-105.0) 01/25/17 08:30 MCH 30.6 pg (25.0-35.0) 01/25/17 08:30 MCHC 33.1 g/dl (31.0-37.0) 01/25/17 08:30 RDW 14.2 % (11.5-14.5) 01/25/17 08:30 Plt Count 203 10^3/uL (120.0-450.0) 01/25/17 08:30 MPV 11.0 fl (7.0-11.0) 01/25/17 08:30 Gran % 62.9 % (50.0-68.0) 01/25/17 08:30 Lymph % (Auto) 27.2 % (22.0-35.0) 01/25/17 08:30 Cascade % (Auto) 7.0 % (1.0-6.0) H 01/25/17 08:30 Eos % (Auto) 2.5 % (1.5-5.0) 01/25/17 08:30 Baso % (Auto) 0.4 % (0.0-3.0) 01/25/17 08:30 Gran # 4.46 (1.4-6.5) 01/25/17 08:30 Lymph # 1.9 (1.2-3.4) 01/25/17 08:30 Cascade # 0.5 (0.1-0.6) 01/25/17 08:30 Eos # 0.2 (0.0-0.7) 01/25/17 08:30 Baso # 0.03 K/mm3 (0.0-2.0) 01/25/17 08:30 Sodium 140 mmol/L (132-148) 01/25/17 08:30 Potassium 4.6 mmol/L (3.6-5.0) 01/25/17 08:30 Chloride 100 mmol/L (95-110) 01/25/17 08:30 Carbon Dioxide 30 mmol/L (21-33) 01/25/17 08:30 Anion Gap 15 (10-20) 01/25/17 08:30 BUN 16 mg/dL (7-21) 01/25/17 08:30 Creatinine 0.8 mg/dL (0.5-1.4) 01/25/17 08:30 Est GFR ( Amer) > 60 01/25/17 08:30 Est GFR (Non-Af Amer) > 60 01/25/17 08:30 Random Glucose 135 mg/dL (70-110) H 01/25/17 08:30 Calcium 9.1 mg/dL (8.4-10.5) 01/25/17 08:30 Total Bilirubin 0.4 mg/dL (0.2-1.3) 01/25/17 08:30 AST 51 U/L (15-39) H 01/25/17 08:30 ALT 44 U/L (7-56) 01/25/17 08:30 Alkaline Phosphatase 63 U/L (38-133) 01/25/17 08:30 Total Protein 7.5 g/dL (5.8-8.3) 01/25/17 08:30 Albumin 3.8 g/dL (3.0-4.8) 01/25/17 08:30 Globulin 3.6 gm/dL 01/25/17 08:30 Albumin/Globulin Ratio 1.1 (1.1-1.8) 01/25/17 08:30 Attending/Attestation - Attestation I have personally seen and examined this patient.: Yes I have fully participated in the care of the patient.: Yes I have reviewed all pertinent clinical information, including history, physical exam and plan: Yes Notes (Text): 01/28/17 14:39 Attending note; Patient seen and examined with resident. Patient is a 81-year-old female admitted with paroxysmal A. fib. rate controlled with by mouth metoprolol.Started on Eliquis. Continue Brillanta instead of plavix. Aspirin discontinued per cardiology . The risks and benefits explained to the patient in detail . Message left with patient's primary manager metrology Dr. Greenberg. Echocardiogram showed ejection fraction of 28 [address] 30%. CT head is negative. PT evaluation appreciated. discharge home today. Upon discharge the patient will follow up with PMD Dr. Busby. diagnosis; New onset atrial fibrillation Cardiomyopathy Noncompliance with medications Anxiety
== END 2017-01-26 17:04 | disposition home or self-care (01) | DRG 309 ==
LOC: TRCU 17:02
PROVIDERS: ADMIT Internal Medicine; ATTEND Internal Medicine
PROC: F07Z9FZ Gait Training/Functional Ambulation Treatment using Assistive, Adaptive, Supportive or Protective Equipment (ICD-10-PCS; principal; 2017-01-25)
PROC: F08Z4FZ Home Management Treatment using Assistive, Adaptive, Supportive or Protective Equipment (ICD-10-PCS; 2017-01-25)
DX: I48.0 Paroxysmal atrial fibrillation (principal); I50.22 Chronic systolic (congestive) heart failure; I42.9 Cardiomyopathy, unspecified; I25.10 Atherosclerotic heart disease of native coronary artery without angina pectoris; E78.5 Hyperlipidemia, unspecified; R42 Dizziness and giddiness; F41.9 Anxiety disorder, unspecified; H35.30 Unspecified macular degeneration; Z91.14 Patient's other noncompliance with medication regimen; Z95.5 Presence of coronary angioplasty implant and graft; Z87.891 Personal history of nicotine dependence

== ENCOUNTER 2017-02-25 17:34 | Observation (INO) | payer MEDICARE ==
[2017-02-25 17:34] VITALS: PULSE 160
--- NOTE | 2017-02-25 18:22 | ED PDOC ---
Arrival/HPI - General Chief Complaint: High Blood Pressure Time Seen by Provider: 02/25/17 17:44 Historian: Patient - History of Present Illness Narrative History of Present Illness (Text): 02/25/17 18:18 Patient is an 81 year old female whose past medical history includes stents, [place] in 2015, and atrial fibrillation who presents to the emergency department with blurry vision and elevated blood pressure. She states she was seeing her eye doctor for a routine visit and had her eyes dilated. She states she believes the blurry vision began after the visit today but is not sure. She also reports fatigue and lightheadedness associated with lower blood pressure over the past few days. Currently denies headache, dizziness, chest pain, or shortness of breath. She reportedly has had intermittent chest tightness over the past week, daughter also states she has been weaker than usual and unsteady on her feet, noted when she was walking from car to the ED. Time/Duration: < week Symptom Onset: Gradual Symptom Course: Unchanged Modifying Factors (Text): None Past Medical History - Provider Review Nursing Documentation Reviewed: Yes - Reproductive Menopause: Yes - Cardiac Hx Cardiac Disorders: Yes (CAD, 2 stents) Hx Congestive Heart Failure: Yes Hx Hypertension: Yes - Pulmonary Hx Respiratory Disorders: No - Neurological Hx Neurological Disorder: Yes (SYNCOPE) Hx Dizziness: Yes Hx Migraine: Yes - HEENT Hx HEENT Disorder: Yes Hx Macular Degeneration: Yes (RIGHT EYE) - Renal Hx Renal Disorder: No - Endocrine/Metabolic Hx Endocrine Disorders: No - Hematological/Oncological Hx Blood Disorders: No - Integumentary Hx Dermatological Disorder: No - Musculoskeletal/Rheumatological Hx Falls: No - Gastrointestinal Hx Gastrointestinal Disorders: No - Genitourinary/Gynecological Hx Genitourinary Disorders: No Hx Reproductive Disorders: No - Psychiatric Hx Psychophysiologic Disorder: Yes Hx Anxiety: Yes Hx Substance Use: No - Surgical History Hx Cardiac Catheterization: Yes Hx Coronary Stent: Yes (X3 8-7-15) Hx Orthopedic Surgery: Yes (CHILDHOOD LEFT LEG.) - Anesthesia Hx Anesthesia: No Hx Anesthesia Reactions: No Hx Malignant Hyperthermia: No - Suicidal Assessment Feels Threatened In Home Enviroment: No Family/Social History - Physician Review Nursing Documentation Reviewed: Yes Family/Social History: Unknown Family HX Smoking Status: Former Smoker Hx Alcohol Use: Yes (GLASS OF WINE) Hx Substance Use: No Allergies/Home Meds Allergies/Adverse Reactions: Allergies amlodipine Allergy (Verified 01/24/17 21:36) SHORTNESS OF BREATH betamethasone Allergy (Verified 01/24/17 21:36) ANAPHYLAXIS candesartan Allergy (Verified 01/24/17 21:36) ANAPHYLAXIS clindamycin Allergy (Verified 01/24/17 21:36) ANAPHYLAXIS clobetasol Allergy (Verified 01/24/17 21:36) ANAPHYLAXIS hydroxyzine Allergy (Verified 01/24/17 21:36) ANAPHYLAXIS lisinopril Allergy (Verified 01/24/17 21:36) ANAPHYLAXIS metoprolol Allergy (Verified 01/24/17 21:36) SHORTNESS OF BREATH nebivolol HCl [From Bystolic] Allergy (Verified 01/24/17 21:36) SHORTNESS OF BREATH nisoldipine Allergy (Verified 01/24/17 21:36) ANAPHYLAXIS olmesartan medoxomil [From Benicar] Allergy (Verified 01/24/17 21:36) ANAPHYLAXIS rofecoxib [From Vioxx] Allergy (Verified 01/24/17 21:36) ANAPHYLAXIS Home Medications: Home Meds Medication Instructions Recorded Confirmed ALPRAZolam [Xanax] 0.5 tab PO PRN PRN 07/19/16 02/25/17 Apixaban [Eliquis] 2.5 mg PO BID 02/25/17 02/25/17 Aspirin [Ecotrin] 81 mg PO DAILY 02/25/17 02/25/17 Metoprolol Succinate [Toprol XL] 25 mg PO DAILY 02/25/17 02/25/17 Review of Systems - Review of Systems Constitutional: Fatigue Eyes: Vision Changes (Blurry) ENT: absent: Hearing Changes Respiratory: absent: SOB Cardiovascular: Chest Pain. absent: Calf Pain, HIDALGO, Syncope Gastrointestinal: absent: Abdominal Pain, Nausea, Vomiting Genitourinary Female: absent: Dysuria Musculoskeletal: absent: Back Pain Skin: absent: Rash Neurological: Dizziness. absent: Headache, Focal Weakness, Gait Changes Endocrine: absent: Diaphoresis, Polydipsia Hemo/Lymphatic: absent: Easy Bleeding Psychiatric: absent: Depression Physical Exam - Physical Exam Narrative Physical Exam (Text): Head: Atraumatic. Normocephalic. Eyes: PERRL. EOMI. Conjunctivae are not pale. ENT: Mucous membranes are moist and intact. Oropharynx is clear and symmetric. Neck: Supple. Full ROM. No JVD. No lymphadenopathy. Cardiovascular: Regular rate. Regular rhythm. No murmurs, rubs, or gallops. Distal pulses are 2+ and symmetric. Pulmonary/Chest: No evidence of respiratory distress. Clear to auscultation bilaterally. No wheezing, rales or rhonchi. Abdominal: Soft and non-distended. There is no tenderness. No rebound, guarding, or rigidity. No organomegaly. Good bowel sounds. Back: No CVA tenderness. Extremities: No edema. No cyanosis. No clubbing. Full range of motion in all extremities. No calf tenderness. Skin: Skin is warm and dry. No petechiae. No purpura. Neurological: Alert, awake, and oriented to person, place, time, and situation. Normal speech. Psychiatric: Good eye contact. Normal interaction, affect, and behavior. Vital Signs Reviewed: Yes Vital Signs Temp Pulse Resp BP Pulse Ox 02/25/17 19:21 64 18 160/100 H 99 02/25/17 18:53 68 17 170/97 H 96 02/25/17 18:05 68 17 184/107 H 96 02/25/17 17:34 98 F 71 18 173/94 H 95 Temperature: Afebrile Blood Pressure: Hypertensive Pulse: Regular Respiratory Rate: Normal Appearance: Positive for: Well-Appearing, Non-Toxic, Comfortable Pain Distress: None Mental Status: Positive for: Alert and Oriented X 3 Medical Decision Making ED Course and Treatment: Differential Diagnosis included but are not limited to: Plan: Progress Notes: EXAM: CT Head Without Intravenous Contrast FINDINGS: Brain: There is prominence of sulci gyri and ventricles. There is no midline shift. There is decreased attenuation in periventricular white matter. There is a pituitary mass with enlargement of the sella, unchanged. There are no focal hemorrhages. Maya-white differentiation is visualized. Ventricles: See above. Bones: Cranial vault is intact. Soft tissues: unremarkable Sinuses: There is no acute sinusitis. Ears and mastoids: Middle ears and mastoids are unremarkable. Orbits: Orbital contents are unremarkable. IMPRESSION: Atrophy and small vessel disease, no bleed; pituitary mass unchanged since the prior study Dictated and Authenticated by: Estefanía Vela MD 02/25/2017 7:22 PM Eastern Time ([place] & [place]) - Lab Interpretations Lab Results: 02/25/17 18:40 02/25/17 18:40 Lab Results 02/25/17 18:40: Sodium 138, Potassium 4.1, Chloride 100, Carbon Dioxide 29, Anion Gap 13, BUN 24 H, Creatinine 0.6, Est GFR ( Amer) > 60, Est GFR ( Non-Af Amer) > 60, Random Glucose 82, Calcium 9.3, Total Bilirubin 0.4, AST 39, ALT 30, Alkaline Phosphatase 68, Lactate Dehydrogenase 529, Total Creatine Kinase 73, Troponin I 0.03 D, Total Protein 7.7, Albumin 4.2, Globulin 3.5, Albumin/Globulin Ratio 1.2 02/25/17 18:40: PT 10.7, INR 0.99, APTT 25.2 02/25/17 18:40: WBC 7.1, RBC 4.18, Hgb 13.0, Hct 38.8, MCV 92.8, MCH 31.1, MCHC 33.5, RDW 13.5, Plt Count 213, MPV 11.4 H, Gran % 58.7, Lymph % (Auto) 28.9, Lynn % (Auto) 9.1 H, Eos % (Auto) 2.7, Baso % (Auto) 0.6, Gran # 4.20, Lymph # 2.1, Lynn # 0.7 H, Eos # 0.2, Baso # 0.04 - RAD Interpretation Radiology Orders: 02/25/17 18:22 HEAD W/O CONTRAST [CT] Stat CHEST ONE VIEW [RAD] Stat - Medication Orders Current Medication Orders: Discontinued Medications Clonidine HCl (Catapres) 0.1 mg PO ONCE STA Stop: 02/25/17 18:25 Last Admin: 02/25/17 19:19 Dose: - Scribe Statement The provider has reviewed the documentation as recorded by the Lory Gottlieb Provider Scribe Attestation: All medical record entries made by the Scribe were at my direction and personally dictated by me. I have reviewed the chart and agree that the record accurately reflects my personal performance of the history, physical exam, medical decision making, and the department course for this patient. I have also personally directed, reviewed, and agree with the discharge instructions and disposition. Disposition/Present on Arrival - Present on Arrival History of DVT/PE: No History of Uncontrolled Diabetes: No Urinary Catheter: No History of Decub. Ulcer: No History Surgical Site Infection Following: None - Disposition Referrals: Kody Busby MD [Primary Care Provider] - Follow up with primary
[2017-02-25 18:58] LABS: ADD MANUAL DIFF? NO
[2017-02-25 19:03] LABS: BASO # 0.04 K/mm3 (0.0-2.0); BASO % 0.6 % (0.0-3.0); EOS # 0.2 (0.0-0.7); EOS % 2.7 % (1.5-5.0); GRAN % 58.7 % (50.0-68.0); HEMATOCRIT 38.8 % (36.0-48.0); LYMPH # 2.1 (1.2-3.4); LYMPH % 28.9 % (22.0-35.0); MEAN CELL VOLUME 92.8 fL (80.0-105.0); MEAN CORPUSCULAR HEMOGLOBIN 31.1 pg (25.0-35.0); MEAN CORPUSCULAR HGB CONC 33.5 g/dl (31.0-37.0); MEAN PLATELET VOLUME 11.4 fl (7.0-11.0); MONO # 0.7 (0.1-0.6); MONO % 9.1 % (1.0-6.0); PLATELET COUNT 213 10^3/uL (120.0-450.0); RED CELL DISTRIBUTION WIDTH 13.5 % (11.5-14.5); WHITE BLOOD COUNT 7.1 10^3/ul (4.5-11.0)
[2017-02-25 19:09] LABS: ALB/GLOB RATIO 1.2 (1.1-1.8); ALKALINE PHOSPHATASE 68 U/L (38-133); ALT/SGPT 30 U/L (7-56); AST/SGOT 39 U/L (15-39); BILIRUBIN,TOTAL 0.4 mg/dL (0.2-1.3); BLOOD UREA NITROGEN 24 mg/dL (7-21); CALCIUM 9.3 mg/dL (8.4-10.5); CARBON DIOXIDE 29 mmol/L (21-33); CHLORIDE 100 mmol/L (98-107); GFR AFRICAN-AMERICAN > 60; GLUCOSE,RANDOM 82 mg/dL (70-110); POTASSIUM 4.1 mmol/L (3.6-5.0); SODIUM 138 mmol/L (132-148); TOTAL PROTEIN 7.7 g/dL (5.8-8.3)
[2017-02-25 19:13] LABS: INR 0.99 (0.93-1.08); PARTIAL THROMBOPLASTIN TIME 25.2 Seconds (23.7-30.8)
[2017-02-25 19:20] LABS: TROPONIN I 0.03 ng/mL
--- NOTE | 2017-02-25 19:22 | CT ---
EXAM: CT Head Without Intravenous Contrast CLINICAL HISTORY: 81 years old, female; Signs and symptoms; Dizziness; Additional info: Hypertension, dizziness TECHNIQUE: Axial computed tomography images of the head/brain without intravenous contrast. This CT exam was performed using one or more of the following dose reduction techniques: automated exposure control, adjustment of the mA and/or kV according to patient size, and/or use of iterative reconstruction technique. EXAM DATE/TIME: 02/25/2017 6:22 PM COMPARISON: CT - HEAD W/O CONTRAST 01/24/2017 11:04:43 AM FINDINGS: Brain: There is prominence of sulci gyri and ventricles. There is no midline shift. There is decreased attenuation in periventricular white matter. There is a pituitary mass with enlargement of the sella, unchanged.. There are no focal hemorrhages. Maya-white differentiation is visualized. Ventricles: See above. Bones: Cranial vault is intact. Soft tissues: unremarkable Sinuses: There is no acute sinusitis. Ears and mastoids: Middle ears and mastoids are unremarkable. Orbits: Orbital contents are unremarkable. IMPRESSION: Atrophy and small vessel disease, no bleed; pituitary mass unchanged since the prior study
[2017-02-25] MEDS ORDERED: Albuterol 0.083% Inhal Sol (2.5 mg/3 mL) UD IH PRN (20:16)
--- NOTE | 2017-02-25 20:40 | RAD ---
HISTORY: hypertension, blurred vision COMPARISON: Chest x-ray performed 01/21/17 TECHNIQUE: Chest, one view. FINDINGS: LUNGS: Hyperinflation may be seen in the setting of COPD. No focal consolidation.Increased lucencies especially within the bilateral upper lung armijo compatible with underlying emphysema. Please note that chest x-ray has limited sensitivity for the detection of pulmonary masses. PLEURA: No significant pleural effusion identified. No definite pneumothorax . CARDIOVASCULAR: Mild cardiomegaly. Atherosclerotic calcifications of the aorta. OSSEOUS STRUCTURES: Degenerative changes. VISUALIZED UPPER ABDOMEN: Unremarkable. OTHER FINDINGS: None. IMPRESSION: Findings consistent with emphysema/ COPD.
--- NOTE | 2017-02-25 20:59 | CP.PCM.HP ---
History of Present Illness - History of Present Illness History of Present Illness: CC: blurry vision and high blood pressure This is a 81yo F stents, [place] in 2015, and atrial fibrillation, HTN, HLD, mild dementia, who is presenting to the ED with a 1d history of elevated BP and blurry vision, the patient was recently at the eye doctor and had her eyes dilated for an exam and began to have blurry vision after that. she also stated that her BP started to run extremely high, and it is normally controlled with the Furosemide and Metoprolol only she takes; states she has "adverse reactions " to other medicines that were seen in the MAR but could not list any serious side effects. She currently denies any BAH, CP, SOB, abdominal pain, N/V/D, blurry vision, dysuria/freq/urg, or lower extremity pain/swelling. Pmhx: as above Surgeries: cardiac cath Allergies: states she is intolerant to lipitor, and gets "dizzy" with other BP meds FamHx: DM mom, , father heart problems, children healthy Social: Lives with daughter, independent in ADL but not IADL, walks without assistance, ex-smoker in 30's, 1-2 cigarettes for 10 years, 1-2 glasses of red wine nightly Meds: Please refer to MAR Present on Admission - Present on Admission Any Indicators Present on Admission: No History of DVT/PE: No History of Uncontrolled Diabetes: No Urinary Catheter: No Decubitus Ulcer Present: No Past Patient History - Past Social History Smoking Status: Former Smoker - CARDIAC Hx Cardiac Disorders: Yes (CAD, 2 stents) Hx Congestive Heart Failure: Yes Hx Hypertension: Yes - PULMONARY Hx Respiratory Disorders: No - NEUROLOGICAL Hx Neurological Disorder: Yes (SYNCOPE) Hx Dizziness: Yes Hx Migraine: Yes - HEENT Hx HEENT Problems: Yes Hx Macular Degeneration: Yes (RIGHT EYE) - RENAL Hx Chronic Kidney Disease: No - ENDOCRINE/METABOLIC Hx Endocrine Disorders: No - HEMATOLOGICAL/ONCOLOGICAL Hx Blood Disorders: No - INTEGUMENTARY Hx Dermatological Problems: No - MUSCULOSKELETAL/RHEUMATOLOGICAL Hx Falls: No - GASTROINTESTINAL Hx Gastrointestinal Disorders: No - GENITOURINARY/GYNECOLOGICAL Hx Genitourinary Disorders: No Hx Reproductive Disorders: No - PSYCHIATRIC Hx Psychophysiologic Disorder: Yes Hx Anxiety: Yes Hx Substance Use: No - SURGICAL HISTORY Hx Cardiac Catheterization: Yes Hx Coronary Stent: Yes (X3 8-7-15) Hx Orthopedic Surgery: Yes (CHILDHOOD LEFT LEG.) - ANESTHESIA Hx Anesthesia: No Hx Anesthesia Reactions: No Hx Malignant Hyperthermia: No Meds Allergies/Adverse Reactions: Allergies Allergy/AdvReac Type Severity Reaction Status Date / Time penicillin G Allergy SHORTNESS Verified 02/25/17 20:24 OF BREATH Physical Exam - Constitutional Appears: Well, Non-toxic - Head Exam Head Exam: ATRAUMATIC, NORMAL INSPECTION - Eye Exam Eye Exam: EOMI Pupil Exam: NORMAL ACCOMODATION - ENT Exam ENT Exam: Mucous Membranes Moist - Neck Exam Neck exam: Positive for: Full Rom. Negative for: Lymphadenopathy - Respiratory Exam Respiratory Exam: Clear to Auscultation Bilateral, NORMAL BREATHING PATTERN. absent: Rales, Rhonchi, Wheezes - Cardiovascular Exam Cardiovascular Exam: REGULAR RHYTHM, +S1, +S2 - GI/Abdominal Exam GI & Abdominal Exam: Normal Bowel Sounds, Soft. absent: Tenderness - Rectal Exam Rectal Exam: Deferred - Extremities Exam Extremities exam: Positive for: full ROM. Negative for: calf tenderness - Back Exam Back exam: NORMAL INSPECTION. absent: CVA tenderness (L), CVA tenderness (R) - Neurological Exam Neurological exam: Alert, CN II-XII Intact, Oriented x3, Reflexes Normal - Psychiatric Exam Psychiatric exam: Normal Affect, Normal Mood - Skin Skin Exam: Warm Results - Vital Signs Recent Vital Signs: Last Vital Signs Temp 98 F 02/25/17 17:34 Pulse 69 02/25/17 20:58 Resp 18 02/25/17 20:58 BP 144/82 02/25/17 20:58 Pulse Ox 97 02/25/17 20:58 - Labs Result Diagrams: 02/25/17 18:40 02/25/17 18:40 Labs: Laboratory Results - last 24 hr 02/25/17 02/25/17 02/25/17 18:40 18:40 18:40 WBC 7.1 RBC 4.18 Hgb 13.0 Hct 38.8 MCV 92.8 MCH 31.1 MCHC 33.5 RDW 13.5 Plt Count 213 MPV 11.4 H Gran % 58.7 Lymph % (Auto) 28.9 E[place] % (Auto) 9.1 H Eos % (Auto) 2.7 Baso % (Auto) 0.6 Gran # 4.20 Lymph # 2.1 [place] # 0.7 H Eos # 0.2 Baso # 0.04 PT 10.7 INR 0.99 APTT 25.2 Sodium 138 Potassium 4.1 Chloride 100 Carbon Dioxide 29 Anion Gap 13 BUN 24 H Creatinine 0.6 Est GFR ( Amer) > 60 Est GFR (Non-Af Amer) > 60 Random Glucose 82 Calcium 9.3 Total Bilirubin 0.4 AST 39 ALT 30 Alkaline Phosphatase 68 Lactate Dehydrogenase 529 Total Creatine Kinase 73 Troponin I 0.03 D Total Protein 7.7 Albumin 4.2 Globulin 3.5 Albumin/Globulin Ratio 1.2 Assessment & Plan - Assessment and Plan (Free Text) Assessment: 81yo F admitted for accelerated HTN Accelerated HTN -CT unchanged from previous; shows pituitary mass that is unchanged in size and no acute findings -will increase metoprolol daily, increase in furosemide daily, and add lisinopril 5mg, with PRN hydralazine -EKG unchanged from previous, will trend trops; initial .06 denying chest pain Systolic CHF w/ 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 Celeste Dickson PGY1 Night Float Decision To Admit - Pt Status Changed To: Hospital Disposition Of: Observation - . Bed Request Type: Remote Telemetry Admitting Physician: Justin Medellin MD
[2017-02-25 23:25] VITALS: BMI 20.1
[2017-02-26 01:37] LABS: TROPONIN I 0.04 ng/mL
[2017-02-26 06:47] VITALS: RESP 18; O2SAT 96
[2017-02-26 06:49] VITALS: TEMP 98.2
[2017-02-26 07:49] LABS: ADD MANUAL DIFF? NO
[2017-02-26 07:54] LABS: BASO # 0.06 K/mm3 (0.0-2.0); BASO % 0.9 % (0.0-3.0); EOS # 0.1 (0.0-0.7); GRAN # 4.11 (1.4-6.5); GRAN % 59.4 % (50.0-68.0); LYMPH % 28.4 % (22.0-35.0); MEAN CELL VOLUME 93.9 fL (80.0-105.0); MEAN CORPUSCULAR HEMOGLOBIN 30.5 pg (25.0-35.0); MEAN CORPUSCULAR HGB CONC 32.5 g/dl (31.0-37.0); MEAN PLATELET VOLUME 11.2 fl (7.0-11.0); MONO # 0.6 (0.1-0.6); MONO % 9.3 % (1.0-6.0); PLATELET COUNT 198 10^3/uL (120.0-450.0); RED CELL DISTRIBUTION WIDTH 13.5 % (11.5-14.5); WHITE BLOOD COUNT 6.9 10^3/ul (4.5-11.0)
[2017-02-26 08:08] LABS: ALB/GLOB RATIO 1.1 (1.1-1.8); ALKALINE PHOSPHATASE 67 U/L (38-133); ALT/SGPT 30 U/L (7-56); AST/SGOT 35 U/L (15-39); BILIRUBIN,TOTAL 0.5 mg/dL (0.2-1.3); BLOOD UREA NITROGEN 19 mg/dL (7-21); CALCIUM 9.1 mg/dL (8.4-10.5); CARBON DIOXIDE 33 mmol/L (21-33); CHLORIDE 101 mmol/L (98-107); GFR AFRICAN-AMERICAN > 60; GLUCOSE,RANDOM 79 mg/dL (70-110); POTASSIUM 4.4 mmol/L (3.6-5.0); SODIUM 141 mmol/L (132-148); TOTAL PROTEIN 7.3 g/dL (5.8-8.3)
[2017-02-26 08:19] LABS: TROPONIN I 0.03 ng/mL
[2017-02-26] MEDS ORDERED: Furosemide 40 mg/5 mL Oral Soln UD PO SCH (10:00)
[2017-02-26] MEDS ORDERED: Metoprolol Succinate 50 mg XL Tab PO SCH (10:00)
[2017-02-26 10:18] VITALS: BP 118/70; PULSE 64
--- NOTE | 2017-02-26 12:52 | CP.PCM.DIS ---
<Murtaza Moore - Last Filed: 02/26/17 12:47> Provider - Provider Date of Admission: 02/25/17 20:05 Attending physician: Jackelyn Banegas MD Primary care physician: Kody Busby MD Time Spent in preparation of Discharge (in minutes): 35 Hospital Course - Lab Results Lab Results: Most Recent Lab Values WBC 6.9 10^3/ul (4.5-11.0) 02/26/17 07:46 RBC 4.26 10^6/uL (3.5-6.1) 02/26/17 07:46 Hgb 13.0 gm/dL (12.0-16.0) 02/26/17 07:46 Hct 40.0 % (36.0-48.0) 02/26/17 07:46 MCV 93.9 fL (80.0-105.0) 02/26/17 07:46 MCH 30.5 pg (25.0-35.0) 02/26/17 07:46 MCHC 32.5 g/dl (31.0-37.0) 02/26/17 07:46 RDW 13.5 % (11.5-14.5) 02/26/17 07:46 Plt Count 198 10^3/uL (120.0-450.0) 02/26/17 07:46 MPV 11.2 fl (7.0-11.0) H 02/26/17 07:46 Gran % 59.4 % (50.0-68.0) 02/26/17 07:46 Lymph % (Auto) 28.4 % (22.0-35.0) 02/26/17 07:46 [place] % (Auto) 9.3 % (1.0-6.0) H 02/26/17 07:46 Eos % (Auto) 2.0 % (1.5-5.0) 02/26/17 07:46 Baso % (Auto) 0.9 % (0.0-3.0) 02/26/17 07:46 Gran # 4.11 (1.4-6.5) 02/26/17 07:46 Lymph # 2.0 (1.2-3.4) 02/26/17 07:46 [place] # 0.6 (0.1-0.6) 02/26/17 07:46 Eos # 0.1 (0.0-0.7) 02/26/17 07:46 Baso # 0.06 K/mm3 (0.0-2.0) 02/26/17 07:46 PT 10.7 Seconds (9.9-11.8) 02/25/17 18:40 INR 0.99 (0.93-1.08) 02/25/17 18:40 APTT 25.2 Seconds (23.7-30.8) 02/25/17 18:40 Sodium 141 mmol/L (132-148) 02/26/17 07:46 Potassium 4.4 mmol/L (3.6-5.0) 02/26/17 07:46 Chloride 101 mmol/L (98-107) 02/26/17 07:46 Carbon Dioxide 33 mmol/L (21-33) 02/26/17 07:46 Anion Gap 11 (10-20) 02/26/17 07:46 BUN 19 mg/dL (7-21) 02/26/17 07:46 Creatinine 0.7 mg/dL (0.5-1.4) 02/26/17 07:46 Est GFR ( Amer) > 60 02/26/17 07:46 Est GFR (Non-Af Amer) > 60 02/26/17 07:46 Random Glucose 79 mg/dL (70-110) 02/26/17 07:46 Calcium 9.1 mg/dL (8.4-10.5) 02/26/17 07:46 Total Bilirubin 0.5 mg/dL (0.2-1.3) 02/26/17 07:46 AST 35 U/L (15-39) 02/26/17 07:46 ALT 30 U/L (7-56) 02/26/17 07:46 Alkaline Phosphatase 67 U/L (38-133) 02/26/17 07:46 Lactate Dehydrogenase 486 U/L (333-699) 02/26/17 07:46 Total Creatine Kinase 59 U/L (35-230) 02/26/17 07:46 Troponin I 0.03 ng/mL D 02/26/17 07:46 Total Protein 7.3 g/dL (5.8-8.3) 02/26/17 07:46 Albumin 3.9 g/dL (3.0-4.8) 02/26/17 07:46 Globulin 3.4 gm/dL 02/26/17 07:46 Albumin/Globulin Ratio 1.1 (1.1-1.8) 02/26/17 07:46 TSH 3rd Generation 3.53 mIU/mL (0.46-4.68) 02/26/17 07:46 - Hospital Course Hospital Course: This is a 81yo F stents, IN in 2014, and atrial fibrillation, HTN, HLD, mild dementia, who is presenting to the ED with a 1d history of elevated BP and blurry vision, the patient was recently at the eye doctor and had her eyes dilated for an exam and began to have blurry vision after that. she also stated that her BP started to run extremely high, and it is normally controlled with the Furosemide and Metoprolol only she takes.She currently denies any BAH, CP, SOB, abdominal pain, N/V/D, blurry vision, dysuria/freq/urg, or lower extremity pain/swelling. The patient was admitted for hypertensive urgency. BP resolved with Toradol 50mg, furosemide, lisinopril was added as well. Daughter states SBP was >180 prior to admission. Today the patient is normotensive. She denies headache, vision changes, n/v/d, chest pain or shortness of breath. The patient is discharged on Toprol 50mg and Lisinopril 5mg daily. The patient is instructed to f/u with her PCP as soon as possible. Discharge Exam - Head Exam Head Exam: ATRAUMATIC, NORMAL INSPECTION Discharge Plan - Discharge Medications Prescriptions: Lisinopril 5 mg PO DAILY #30 tablet Metoprolol Succinate [Toprol XL] 50 mg PO DAILY #30 - Follow Up Plan Condition: GOOD Disposition: HOME/ ROUTINE Instructions: Hypertensive Crisis (GEN) Additional Instructions: Please continue to take your blood pressure daily. Please see you family doctor with in 5 days for further evaluation and management of your high blood pressure You are prescribed a new medication called Lisinopril. Take 1 tablet daily. Toprol is increased from 25mg to 50mg. Take one tablet daily. Nursing If you begin to experience weakness, dizziness, lightheadedness, chest pain, shortness of breath, your symptoms return, return to the emergency room or call 911. See care notes provided for further instructions. Referrals: Kody Busby MD [Primary Care Provider] - <Sarika GREEN,[facility] - Last Filed: 02/26/17 13:29> Provider - Provider Date of Admission: 02/25/17 20:05 Attending physician: Jackelyn Banegas MD Primary care physician: Kody Busby MD Hospital Course - Lab Results Lab Results: Most Recent Lab Values WBC 6.9 10^3/ul (4.5-11.0) 02/26/17 07:46 RBC 4.26 10^6/uL (3.5-6.1) 02/26/17 07:46 Hgb 13.0 gm/dL (12.0-16.0) 02/26/17 07:46 Hct 40.0 % (36.0-48.0) 02/26/17 07:46 MCV 93.9 fL (80.0-105.0) 02/26/17 07:46 MCH 30.5 pg (25.0-35.0) 02/26/17 07:46 MCHC 32.5 g/dl (31.0-37.0) 02/26/17 07:46 RDW 13.5 % (11.5-14.5) 02/26/17 07:46 Plt Count 198 10^3/uL (120.0-450.0) 02/26/17 07:46 MPV 11.2 fl (7.0-11.0) H 02/26/17 07:46 Gran % 59.4 % (50.0-68.0) 02/26/17 07:46 Lymph % (Auto) 28.4 % (22.0-35.0) 02/26/17 07:46 [place] % (Auto) 9.3 % (1.0-6.0) H 02/26/17 07:46 Eos % (Auto) 2.0 % (1.5-5.0) 02/26/17 07:46 Baso % (Auto) 0.9 % (0.0-3.0) 02/26/17 07:46 Gran # 4.11 (1.4-6.5) 02/26/17 07:46 Lymph # 2.0 (1.2-3.4) 02/26/17 07:46 [place] # 0.6 (0.1-0.6) 02/26/17 07:46 Eos # 0.1 (0.0-0.7) 02/26/17 07:46 Baso # 0.06 K/mm3 (0.0-2.0) 02/26/17 07:46 PT 10.7 Seconds (9.9-11.8) 02/25/17 18:40 INR 0.99 (0.93-1.08) 02/25/17 18:40 APTT 25.2 Seconds (23.7-30.8) 02/25/17 18:40 Sodium 141 mmol/L (132-148) 02/26/17 07:46 Potassium 4.4 mmol/L (3.6-5.0) 02/26/17 07:46 Chloride 101 mmol/L (98-107) 02/26/17 07:46 Carbon Dioxide 33 mmol/L (21-33) 02/26/17 07:46 Anion Gap 11 (10-20) 02/26/17 07:46 BUN 19 mg/dL (7-21) 02/26/17 07:46 Creatinine 0.7 mg/dL (0.5-1.4) 02/26/17 07:46 Est GFR ( Amer) > 60 02/26/17 07:46 Est GFR (Non-Af Amer) > 60 02/26/17 07:46 Random Glucose 79 mg/dL (70-110) 02/26/17 07:46 Calcium 9.1 mg/dL (8.4-10.5) 02/26/17 07:46 Total Bilirubin 0.5 mg/dL (0.2-1.3) 02/26/17 07:46 AST 35 U/L (15-39) 02/26/17 07:46 ALT 30 U/L (7-56) 02/26/17 07:46 Alkaline Phosphatase 67 U/L (38-133) 02/26/17 07:46 Lactate Dehydrogenase 486 U/L (333-699) 02/26/17 07:46 Total Creatine Kinase 59 U/L (35-230) 02/26/17 07:46 Troponin I 0.03 ng/mL D 02/26/17 07:46 Total Protein 7.3 g/dL (5.8-8.3) 02/26/17 07:46 Albumin 3.9 g/dL (3.0-4.8) 02/26/17 07:46 Globulin 3.4 gm/dL 02/26/17 07:46 Albumin/Globulin Ratio 1.1 (1.1-1.8) 02/26/17 07:46 TSH 3rd Generation 3.53 mIU/mL (0.46-4.68) 02/26/17 07:46 Attending/Attestation - Attestation I have personally seen and examined this patient.: Yes I have fully participated in the care of the patient.: Yes I have reviewed all pertinent clinical information, including history, physical exam and plan: Yes Notes (Text): 02/26/17 13:24 Patient was seen and examined with electromedical equipment repairer .Agreed with resident assessment and plan. 81 Yrs old Female with PMH of CAD, SP IN and cardiac stent, HTN, CHF with systolic dysfunction, Proxysmal AF on anticoagulation with Apixiban was admitted with uncontrol HTN and blurry vision, has opthamology exam earlier yesterday with her stock puller, CT head was negative.There is focal defict.Patient Toprol dose has been increased to 50 mg po daily and has been started on Lisinopril 5 mg po daily.Blood pressure is better controlled.Blurring of vision has resolved.There is no focal deficit.Patient will be discharged home and will follow up with PCP and cardiology.She is already scheduled for AICD placement with [facility] Tuesday. Management plan was discussed in detail with patient and daughter. Education was provided.
--- NOTE | 2017-02-26 15:56 | CARD ---
APPROVED REPORT EKG Measurement Heart [id number] <Conclusion> Normal sinus rhythm Left axis deviation Inferior infarct, age undetermined Anterolateral infarct, age undetermined Abnormal ECG
== END 2017-02-26 12:36 | disposition home or self-care (01) ==
LOC: ED 17:34 → ERH 20:05 → 2RNO 22:40
PROVIDERS: ADMIT Internal Medicine; ATTEND Internal Medicine
DX: I16.0 Hypertensive urgency (principal); E78.5 Hyperlipidemia, unspecified; F03.90 Unspecified dementia, unspecified severity, without behavioral disturbance, psychotic disturbance, mood disturbance, and anxiety; H35.30 Unspecified macular degeneration; I11.0 Hypertensive heart disease with heart failure; I50.20 Unspecified systolic (congestive) heart failure; I25.10 Atherosclerotic heart disease of native coronary artery without angina pectoris; I25.2 Old myocardial infarction; I48.91 Unspecified atrial fibrillation; I73.9 Peripheral vascular disease, unspecified; Z79.01 Long term (current) use of anticoagulants; Z79.82 Long term (current) use of aspirin; Z83.3 Family history of diabetes mellitus; Z87.891 Personal history of nicotine dependence; Z95.5 Presence of coronary angioplasty implant and graft; E23.7 Disorder of pituitary gland, unspecified; R42 Dizziness and giddiness; G43.909 Migraine, unspecified, not intractable, without status migrainosus; F41.9 Anxiety disorder, unspecified; Z88.1 Allergy status to other antibiotic agents; Z88.9 Allergy status to unspecified drugs, medicaments and biological substances; Z88.0 Allergy status to penicillin; Z87.892 Personal history of anaphylaxis
CPT/HCPCS: 36415; 70450; 71010; 80053; 82550; 83615; 84443; 84484; 85025; 85610; 85730; 93005; 99285; G0378

== ENCOUNTER 2018-03-31 16:50 | Inpatient (IN) | payer MEDICARE ==
[2018-03-31 16:50] VITALS: PULSE 160
--- NOTE | 2018-03-31 17:27 | ED PDOC ---
"Arrival/HPI - General Chief Complaint: Altered Mental Status Time Seen by Provider: 03/31/18 16:57 Historian: Patient - History of Present Illness Narrative History of Present Illness (Text): 03/31/18 17:07 A 82 year old female, whose past medical history includes CHF/A[place] ( patient is on Eliquis, and penicillin allergy, is brought in by ambulance, sent by PMD to the emergency department for being more confused than baseline. Patient reports experiencing fatigue and becoming more forgetful than usual for the past 2 weeks. Patient was scheduled to follow-up with Dr. Jewell today, however did not go. Patient called PMD and was immediately sent to ER afterwards for work up as the pmd feel the patient doesn't sound right. Pt.'s Daughter Annmarie Cr [phone], stated that she called her mother today as well, stated that her mother sound forgetful to her as well. She mentions falling 2 weeks ago onto right-side chest cavity, been bruising but resolving, no head/neck/back pain. Patient denies any pain, fever, chills, abdominal pain , nausea/vomiting/diarrhea, or any other complaints at this time. Time/Duration: > month (2 weeks) Symptom Onset: Sudden, Gradual Symptom Course: Unchanged Past Medical History - Provider Review Nursing Documentation Reviewed: Yes - Infectious Disease Hx of Infectious Diseases: None - Cardiac Hx Cardiac Disorders: Yes (CAD, 2 stents) Hx Congestive Heart Failure: Yes Hx Hypertension: Yes - Pulmonary Hx Respiratory Disorders: No - Neurological Hx Neurological Disorder: Yes (SYNCOPE) Hx Dizziness: Yes Hx Migraine: Yes - HEENT Hx HEENT Disorder: Yes Hx Macular Degeneration: Yes (RIGHT EYE) - Renal Hx Renal Disorder: No - Endocrine/Metabolic Hx Endocrine Disorders: No - Hematological/Oncological Hx Blood Disorders: No - Integumentary Hx Dermatological Disorder: No - Musculoskeletal/Rheumatological Hx Falls: No - Gastrointestinal Hx Gastrointestinal Disorders: No - Genitourinary/Gynecological Hx Genitourinary Disorders: No Hx Reproductive Disorders: No - Psychiatric Hx Psychophysiologic Disorder: Yes Hx Anxiety: Yes Hx Substance Use: No - Surgical History Hx Cardiac Catheterization: Yes Hx Coronary Stent: Yes (X3 8-7-15) Hx Orthopedic Surgery: Yes (CHILDHOOD LEFT LEG.) - Anesthesia Hx Anesthesia: No Hx Anesthesia Reactions: No Hx Malignant Hyperthermia: No - Suicidal Assessment Feels Threatened In Home Enviroment: No Family/Social History - Physician Review Nursing Documentation Reviewed: Yes Family/Social History: No Known Family HX Smoking Status: Former Smoker Hx Alcohol Use: Yes (GLASS OF WINE) Hx Substance Use: No Allergies/Home Meds Allergies/Adverse Reactions: Allergies penicillin G Allergy (Verified 03/31/18 17:06) SHORTNESS OF BREATH amlodipine [From Norvasc] Adverse Reaction (Verified 03/31/18 21:34) SHORTNESS OF BREATH candesartan [From Atacand] Adverse Reaction (Verified 03/31/18 21:34) SHORTNESS OF BREATH clindamycin Adverse Reaction (Verified 03/31/18 21:34) SHORTNESS OF BREATH clobetasol [From Cormax] Adverse Reaction (Verified 03/31/18 21:34) SHORTNESS OF BREATH hydroxyzine [From Atarax] Adverse Reaction (Verified 03/31/18 21:34) SHORTNESS OF BREATH indapamide Adverse Reaction (Verified 03/31/18 21:34) SHORTNESS OF BREATH lisinopril Adverse Reaction (Verified 03/31/18 21:34) SHORTNESS OF BREATH metoprolol Adverse Reaction (Verified 03/31/18 21:34) NAUSEA nebivolol [From Bystolic] Adverse Reaction (Verified 03/31/18 21:34) NAUSEA nisoldipine Adverse Reaction (Verified 03/31/18 21:34) SHORTNESS OF BREATH rofecoxib [From Vioxx] Adverse Reaction (Verified 03/31/18 21:34) SHORTNESS OF BREATH Home Medications: Home Meds Medication Instructions Recorded Confirmed Apixaban [Eliquis] 2.5 mg PO DAILY 03/31/18 03/31/18 Aspirin [Aspirin Chewable] 81 mg PO DAILY 03/31/18 03/31/18 Carvedilol Phosphate [Carvedilol 10 mg PO DAILY 03/31/18 03/31/18 ER] Furosemide [Lasix] 20 mg PO DAILY 03/31/18 03/31/18 Review of Systems - Physician Review All systems were reviewed & negative as marked: Yes - Review of Systems Constitutional: Fatigue. absent: Fevers, Night Sweats Respiratory: absent: SOB, Cough Cardiovascular: absent: Chest Pain Gastrointestinal: absent: Abdominal Pain Genitourinary Female: absent: Dysuria Musculoskeletal: Arthralgias, Myalgias. absent: Back Pain Skin: Other (bruising to right-side chest cavity). absent: Rash, Pruritis, Skin Lesions, Laceration, Abscess, Ulcer, Cellulitis Neurological: absent: Headache, Dizziness Psychiatric: absent: Anxiety, Depression, Suicidal Ideation Physical Exam Vital Signs Reviewed: Yes Vital Signs Temp Pulse Resp BP Pulse Ox 03/31/18 21:44 98.2 F 80 17 138/82 98 03/31/18 19:06 74 20 132/69 99 03/31/18 16:58 97.5 F L 72 18 131/75 98 03/31/18 16:50 97.5 F L 72 18 131/75 98 Temperature: Afebrile Blood Pressure: Normal Pulse: Regular Respiratory Rate: Normal Appearance: Positive for: Well-Appearing, Non-Toxic, Comfortable Pain Distress: None Mental Status: Positive for: Alert and Oriented X 3 Finger Stick Blood Glucose: 80 - Systems Exam Head: Present: Atraumatic, Normocephalic, Other (no facial bony tenderness/ swelling. ). No: Tenderness, Contusion, Swelling, Ecchymosis, Abrasion, Laceration Pupils: Present: PERRL Extroacular Muscles: Present: EOMI Conjunctiva: Present: Normal Ears: Present: NORMAL TM. No: Normal Canal Pharnyx: Present: Normal. No: ERYTHEMA, EXUDATE, TONSILS ENLARGED Nose (External): Present: Atraumatic. No: Abrasion, Contusion, Laceration Nose (Internal): Present: Normal Inspection, No Active Bleeding. No: Rhinorrhea , Septal Hematoma, Epistaxis Neck: Present: Normal Range of Motion, Trachea Midline. No: MIDLINE TENDERNESS , Paraspinal Tenderness, Lymphadenopathy Respiratory/Chest: Present: Clear to Auscultation, Good Air Exchange, Other ( tenderness to right chest cavity, and resolving skin bruising to the region). No: Respiratory Distress, Accessory Muscle Use, Wheezes, Decreased Breath Sounds , Rales, Retracting, Rhonchi Cardiovascular: Present: Regular Rate and Rhythm, Normal S1, S2. No: Murmurs Abdomen: No: Tenderness, Distention, Peritoneal Signs, Rebound, Guarding Upper Extremity: Present: Normal Inspection, Normal ROM, NORMAL PULSES, Neurovascularly Intact, Capillary Refill < 2s. No: Cyanosis, Edema, Deformity Lower Extremity: Present: Normal Inspection, NORMAL PULSES, Neurovascularly Intact. No: Edema, Tenderness, Swelling Neurological: Present: GCS=15, CN II-XII Intact, Speech Normal, Motor Func Grossly Intact, Gait Normal, Memory Normal, Other (normal finger to nose test, normal heel to mendez test, no focal neurological deficits. ) Skin: Present: Warm, Dry, Normal Color. No: Rashes Psychiatric: Present: Alert, Oriented x 3, Normal Insight, Normal Concentration Medical Decision Making ED Course and Treatment: 03/31/18 17:10 Impression: 82 year old female sent in by PMD for confusion (more than baseline) . Plan: -- EKG -- Head CT -- Chest CT -- Labs -- Urinalysis -- Reassess and disposition Progress Notes: 03/31/18 20:16 -EKG: NSR @ 66 BPM, no acute ST or T wave changes compared with previous ekgs. -Ct Head No acute findings. -CT Chest No acute findings. -Labs show no acute significant findings except BUN 27 from 19 (dehydrated) -BNP 1440 from 1700 -UA show +UTI, IV meropenem ordered -UDS show no acute findings -Pt. has been fatigue/tired/confused on and off x 2 weeks?, no focal neurological deficits, can be infectious etiology, will need admission. -I spoke to the daughter Annmarie Cr, , stated that she is concerning for her mother as well about the altered mental state. 03/31/18 20:38 -I spoke to Dr. Luna, covering for Dr. Jewell, discussed about the labs/ radiology result, agreed to admit the patient and request Dr. Terrell for routine consult (ordered). -I discussed with Dr. Emanuel about this case/labs and agreed on the admission. - Lab Interpretations Microbiology Results: Microbiology Results 03/31/18 19:30 Urine,Clean Catch Urine Culture - Final <10,000 CFU/ML. MULTIPLE SPECIES. PROBABLE CONTAMINATION. Lab Results: 03/31/18 17:45 03/31/18 17:45 Lab Results 03/31/18 19:36: Urine Opiates Screen Negative, Urine Methadone Screen Negative, Ur Barbiturates Screen Negative, Ur Phencyclidine Scrn Negative, Ur Amphetamines Screen Negative, U Benzodiazepines Scrn Negative, U Oth Cocaine Metabols Negative, U Cannabinoids Screen Negative 03/31/18 19:36: Urine Color Yellow, Urine Appearance Clear, Urine pH 7.0, Ur Specific [place] 1.010, Urine Protein Negative, Urine Glucose (UA) Negative, Urine Ketones Negative, Urine Blood Negative, Urine Nitrate Negative, Urine Bilirubin Negative, Urine Urobilinogen 0.2, Ur Leukocyte Esterase Small H, Urine RBC 0 - 2, Urine WBC 5 - 10, Ur Epithelial Cells 3 - 4, Urine Bacteria Few 03/31/18 17:45: WBC 7.1, RBC 3.76, Hgb 11.3 L, Hct 34.2 L, MCV 91.0, MCH 30.1, MCHC 33.0, RDW 13.4, Plt Count 217, MPV 10.7, Gran % 67.6, Lymph % (Auto) 22.0, [place] % (Auto) 6.4 H, Eos % (Auto) 3.3, Baso % (Auto) 0.7, Gran # 4.77, Lymph # ( Auto) 1.6, [place] # (Auto) 0.5, Eos # (Auto) 0.2, Baso # (Auto) 0.05 03/31/18 17:45: Salicylates < 1 L, Acetaminophen < 10.0 L 03/31/18 17:45: Sodium 142, Potassium 4.1, Chloride 103, Carbon Dioxide 30, Anion Gap 13, BUN 27 H, Creatinine 0.7, Est GFR ( Amer) > 60, Est GFR ( Non-Af Amer) > 60, Random Glucose 92, Calcium 8.7, Magnesium 2.2, Total Bilirubin 0.3, AST 31, ALT 26, Alkaline Phosphatase 62, Total Creatine Kinase 57 , NT-Pro-B Natriuret Pep 1440 H, Total Protein 6.8, Albumin 3.7, Globulin 3.1, Albumin/Globulin Ratio 1.2 03/31/18 17:45: PT 13.0 H, INR 1.14 H, APTT 29.1 I have reviewed the lab results: Yes - RAD Interpretation Radiology Orders: 03/31/18 17:24 CHEST W/CONTRAST [CT] Stat HEAD W/O CONTRAST [CT] Stat CT Head: CT - HEAD W/O CONTRAST 2017-02-25 18:53 FINDINGS: Brain: Periventricular hypoAttenuation is likely related to small vessel disease. Probable focal calcification in the posterior fossa. No hemorrhage. Ventricles: Unremarkable. No ventriculomegaly. Bones/joints: Unremarkable. No acute fracture. Soft tissues: Unremarkable. Sinuses: Unremarkable as visualized. No acute sinusitis. Mastoid air cells: Unremarkable as visualized. No mastoid effusion. IMPRESSION: No acute findings. Thank you for allowing us to participate in the care of your patient. Dictated and Authenticated by: Brooke Cortez MD PREOLA, VERONICA | Preliminary Radiology Report PROPERTY HANDLER (QA) DISCREPANCY? If there is a discrepancy between the preliminary and final interpretation, please notify [email or web address] To You via [email or web address]. If you do not have access to our QA portal, call our QA team at [phone] CONFIDENTIALITY STATEMENT This report is intended only for the use of the referring physician, and only in accordance with law, If you received this in error, call [phone] Page 2 of 2 03/31/2018 7:07 PM Eastern Time ([place] & [place]) CT Chest: FINDINGS: Lungs: No consolidation. Pleural space: Unremarkable. No pneumothorax. No significant effusion. Heart: Significant coronary artery calcification. No significant pericardial effusion. Bones/joints: Unremarkable. No acute fracture. No dislocation. Soft tissues: Unremarkable. Vasculature: Atherosclerotic changes of the aorta. No thoracic aortic aneurysm. Lymph nodes: Unremarkable. No enlarged lymph nodes. Gallbladder and bile ducts: Small gallstones. Adrenals: Thickening of the adrenal glands. Pancreatic body appears to be slightly full. IMPRESSION: No acute findings. Thank you for allowing us to participate in the care of your patient. Dictated and Authenticated by: Brooke Cortez MD 03/31/2018 7:19 PM Eastern Time ([place] & [place]) Operations Intelligence Superintendent: Radiologist - EKG Interpretation EKG Interpretation (Text): 03/31/18 18:46 NSR @ 66 BPM, no acute ST or T wave changes compared with previous ekgs. Interpreted by ED Physician: Yes Type: 12 lead EKG Comparison: Com.w/previous EKG - Medication Orders Current Medication Orders: Apixaban (Eliquis) 2.5 mg PO DAILY JEFF PRN Reason: Protocol Last Admin: 04/03/18 09:00 Dose: 2.5 mg Aspirin (Aspirin Chewable) 81 mg PO DAILY [facility] Last Admin: 04/03/18 09:00 Dose: 81 mg Donepezil HCl (Aricept) 5 mg PO HS [facility] Last Admin: 04/02/18 20:59 Dose: 5 mg Furosemide (Lasix) 20 mg PO DAILY [facility] Last Admin: 04/03/18 09:00 Dose: Not Given Non-Admin Reason: BP Parameters Not Met MAR Blood Pressure Document 04/03/18 09:00 ANTOALL (Rec: 04/03/18 09:00 ANTOALL [facility] [id number]) Blood Pressure Blood Pressure (100/60-150/90) 90/53 Home Med (Home Med) 10 unit PO QPM JEFF Last Admin: 04/02/18 18:42 Dose: 10 unit Discontinued Medications Meropenem 500 mg/ Sodium (Chloride) 50 mls @ 100 mls/hr IVPB Q24H JEFF PRN Reason: Protocol Stop: 03/31/18 20:44 Last Admin: 03/31/18 21:07 Dose: 100 mls/hr eMAR Start Stop Document 03/31/18 21:07 IT (Rec: 03/31/18 21:07 IT [facility] [id number] Intravenous Solution Start Date 03/31/18 Start Time 21:07 - PA / REC THERAPIST / Resident Statement MD/DO has reviewed & agrees with the documentation as recorded. - Scribe Statement The provider has reviewed the documentation as recorded by the Lory Billy Provider Scribe Attestation: All medical record entries made by the Scribe were at my direction and personally dictated by me. I have reviewed the chart and agree that the record accurately reflects my personal performance of the history, physical exam, medical decision making, and the department course for this patient. I have also personally directed, reviewed, and agree with the discharge instructions and disposition. Disposition/Present on Arrival - Present on Arrival Any Indicators Present on Arrival: No History of DVT/PE: No History of Uncontrolled Diabetes: No Urinary Catheter: No History of Decub. Ulcer: No History Surgical Site Infection Following: None - Disposition Have Diagnosis and Disposition been Completed?: Yes Diagnosis: UTI (urinary tract infection), Potential for altered mental status Disposition: HOSPITALIZED Disposition Time: 19:00 Patient Plan: Admission, Observation Patient Problems: Current Active Problems Problem Status Onset Potential for altered mental status Acute UTI (urinary tract infection) Acute Condition: STABLE"
[2018-03-31 17:53] LABS: BASO # 0.05 K/mm3 (0.0-2.0); BASO % 0.7 % (0.0-3.0); EOS # 0.2 (0.0-0.7); EOS % 3.3 % (1.5-5.0); GRAN # 4.77 (1.4-6.5); GRAN % 67.6 % (50.0-68.0); HEMOGLOBIN 11.3 g/dL (12.0-16.0); LYMPH # 1.6 (1.2-3.4); MEAN CORPUSCULAR HEMOGLOBIN 30.1 pg (25.0-35.0); MEAN PLATELET VOLUME 10.7 fl (7.0-11.0); MONO # 0.5 (0.1-0.6); MONO % 6.4 % (1.0-6.0); RBC 3.76 10^6/uL (3.5-6.1); RED CELL DISTRIBUTION WIDTH 13.4 % (11.5-14.5); WHITE BLOOD COUNT 7.1 10^3/ul (4.5-11.0)
[2018-03-31 18:03] LABS: INR 1.14 (0.93-1.08); PARTIAL THROMBOPLASTIN TIME 29.1 Seconds (25.1-36.5)
[2018-03-31 18:05] LABS: ALB/GLOB RATIO 1.2 (1.1-1.8); ALBUMIN 3.7 g/dL (3.0-4.8); ALT/SGPT 26 U/L (7-56); AST/SGOT 31 U/L (14-36); BLOOD UREA NITROGEN 27 mg/dL (7-21); CALCIUM 8.7 mg/dL (8.4-10.5); GFR AFRICAN-AMERICAN > 60; GFR NON-AFRICAN AMERICAN > 60
[2018-03-31 18:07] LABS: ACETAMINOPHEN < 10.0 ug/ml (10.0-20.0); SALICYLATE < 1 mg/dL (2.0-20.0)
[2018-03-31 18:12] LABS: B-TYPE NATRIURETIC PEPTIDE 1440 pg/mL (0-450)
[2018-03-31] MEDS ORDERED: Iohexol 350 MG/100 ML VIAL ONE (18:19)
--- NOTE | 2018-03-31 19:29 | CT ---
Date of service: 03/31/2018 PROCEDURE: CT HEAD WITHOUT CONTRAST. HISTORY: fall 2 weeks ago COMPARISON: Comparison is made with 02/25/2017 TECHNIQUE: Axial computed tomography images were obtained through the head/brain without intravenous contrast. Radiation dose: Total exam DLP = 944.19 mGy-cm. This CT exam was performed using one or more of the following dose reduction techniques: Automated exposure control, adjustment of the mA and/or kV according to patient size, and/or use of iterative reconstruction technique. FINDINGS: HEMORRHAGE: No intracranial hemorrhage. BRAIN: No mass effect or edema. [id number] atrophy and moderate chronic microvascular white matter ischemic disease are again noted. VENTRICLES: Unremarkable. No hydrocephalus. CALVARIUM: Unremarkable. PARANASAL SINUSES: Unremarkable as visualized. No significant inflammatory changes. MASTOID AIR CELLS: Unremarkable as visualized. No inflammatory changes. OTHER FINDINGS: None. IMPRESSION: No evidence of intracranial hemorrhage mass effect or midline shift. Atrophy and chronic microvascular white matter ischemic disease.
[2018-03-31 19:52] LABS: URINE BILIRUBIN NEGATIVE (NEGATIVE); URINE BLOOD NEGATIVE (NEGATIVE); URINE GLUCOSE (UA) NEGATIVE (NEGATIVE); URINE LEUKOCYTE ESTERASE SMALL Leu/uL (NEGATIVE); URINE PROTEIN NEGATIVE mg/dL (<30 mg/dL); URINE UROBILINOGEN 0.2 E.U./dL (<1 E.U./dL)
[2018-03-31 20:04] LABS: URINE APPEARANCE CLEAR (CLEAR); URINE COLOR YELLOW (YELLOW)
[2018-03-31 20:13] LABS: BARBITURATES, UR NEGATIVE (NEGATIVE); BENZODIAZEPINES, UR NEGATIVE (NEGATIVE); OPIATES, UR NEGATIVE (NEGATIVE); PHENCYCLIDINE, UR NEGATIVE (NEGATIVE)
[2018-03-31] MEDS ORDERED: Meropenem 500 MG in Sodium Chloride 0.9% 50 ML IVPB SCH (20:15)
[2018-03-31 20:23] LABS: URINE BACTERIA FEW (NEG); URINE RBC 0 - 2 /hpf (0-2)
[2018-04-01 04:31] VITALS: BMI 18.4
--- NOTE | 2018-04-01 12:16 | CARD ---
APPROVED REPORT Date of service: 03/31/2018 EKG Measurement Heart [id number] [place] [id number] <Conclusion> Normal sinus rhythm Left axis deviation Inferior infarct, age undetermined Anterolateral infarct, age undetermined Abnormal ECG
--- NOTE | 2018-04-01 12:41 | CT ---
Date of service: 03/31/2018 PROCEDURE: CT Chest with contrast HISTORY: fall x 2 weeks, rt. sided rib bruising, COMPARISON: Plain radiographs from 02/25/2017. TECHNIQUE: Contiguous axial images were obtained through the chest with intravenous contrast enhancement. Sagittal and coronal reconstructions were performed. IV contrast: 100 mL Omnipaque 350 Radiation dose (DLP): 216.12 mGy-cm. This CT exam was performed using one or more of the following dose reduction techniques: Automated exposure control, adjustment of the mA and/or kV according to patient size, and/or use of iterative reconstruction technique. FINDINGS: LUNGS: The lungs are well inflated. There is linear subsegmental atelectasis/ scarring in the lingula. There is biapical pleural thickening. No focal consolidation or lung contusion. There are no endobronchial lesions. MEDIASTINUM: The aorta is not dilated. The heart is normal in size. No pericardial effusion. No pathologic mediastinal or hilar lymphadenopathy. Left-sided pacemaker. PLEURA: No pleural fluid. No pneumothorax. BONES: No fracture. No destructive lesion. Diffuse bone demineralization and multilevel degenerative disc disease. UPPER ABDOMEN: Small gallstone. OTHER FINDINGS: None. IMPRESSION: No acute findings. No evidence of acute fracture, pleural effusion or pneumothorax. A preliminary report was provided by [employer] services.
[2018-04-01] MEDS: CARVEDILOL PHOSPHATE 10 MG PO SCH (17:12)
--- NOTE | 2018-04-02 03:49 | CON ---
DATE: 04/01/2018 NEUROLOGY CONSULTATION REASON FOR CONSULTATION: Altered mental status. HISTORY OF PRESENT ILLNESS: Patient is an 82-year-old female, who has been asked for evaluation of altered mental status. Patient presented to the Emergency Room after the primary physician sent her to the Emergency Room. Patient apparently was getting more and more forgetful over the last 2 weeks. Patient was scheduled to follow up with her primary care physician yesterday; however, did not show up. Patient called primary care physician later, and said herself that she is confused, and patient's daughter apparently also called her mother and was very confused, so the patient was sent to the Emergency Room. Patient lives in a correction facility by herself. Patient said nothing is wrong with her and she feels fine. Denies any headache or dizziness. Denies any focal weakness in the arms or legs. REVIEW OF SYSTEMS: Denies any headache, dizziness, chest pain, shortness of breath, abdominal pain, constipation, diarrhea, dysuria, pyuria, cough, sputum production. PAST MEDICAL HISTORY: Includes atrial fibrillation, congestive heart failure. MEDICATIONS AT HOME: Include Lasix, Coreg, aspirin and Eliquis. PAST SURGICAL HISTORY: Includes permanent pacemaker placement. ALLERGIES: PENICILLIN, AMLODIPINE, , CLINDAMYCIN AND CLOBETASOL. SOCIAL HISTORY: Denies smoking, use of alcohol or illicit drugs. FAMILY HISTORY: Reviewed and noncontributory to the case. PHYSICAL EXAMINATION GENERAL: The patient is an elderly pleasant female, sitting in no acute distress. VITAL SIGNS: Her blood pressure is 125/77, heart rate is 78 per minute, breathing at the rate of 16 per minute, temperature is 97.5 Fahrenheit. HEENT: Head is normocephalic and atraumatic. NECK: Supple. There are no carotid bruit. LUNGS: Clear. CARDIOVASCULAR: S1 and S2 audible. No murmurs. ABDOMEN: Soft and nontender. Bowel sounds present. NEUROLOGY: Mental status: The patient is awake and alert, oriented to place as the hospital, year is 2017, month is March. She is unable to do serial 7. Patient used to work in accounts payroll. Her memory recall is 0/3 in 5 minutes. She follows simple commands. Cranial nerve examination: Pupils 3 mm bilaterally reactive to light. Visual armijo are full. Extraocular movements are intact. There is no facial asymmetry. Palate is upgoing bilaterally and tongue is midline. Motor examination, tone is normal. Power is 5/5 bilaterally in all extremities. Reflexes +2 and symmetrical. Plantars downgoing bilaterally. Cerebellar examination, [id number] shows no dysmetria. Gait is narrow based. Sensory examination intact to soft touch and pinprick. LABORATORY DATA: Reviewed shows WBC of 7.1, hemoglobin 11.3, hematocrit 34.2 and platelets of 217. Her INR is 1.14. Sodium is 142, potassium 4.1, chloride of 103, carbon dioxide content 30, BUN of 27, creatinine of 0.7 and glucose of 92. Her urinalysis shows wbc of 5 to 10, bacteria few. Urine toxicology screen is negative. 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 RECOMMENDATIONS: 1. The patient due to have vitamin B12 level. 2. Patient will have T4 and TSH levels. 3. Patient to be started on Aricept 5 mg once a day. 4. Patient to have an electroencephalogram. 5. Patient cannot have MRI of the brain because of the presence of permanent pacemaker. 6. Patient will need supervised placement as she is confused. 7. Please continue supportive care and other treatment. Thank you for the opportunity to participate in the care of this patient. Miracle Aj MD
[2018-04-02 08:14] LABS: T4 5.4 ug/dL (5.5-11.0)
--- NOTE | 2018-04-02 13:11 | PN ---
DATE: 04/02/2018 NEUROLOGY PROGRESS NOTE SUBJECTIVE: The patient is sitting on the bed in no acute distress. Denies having any headache or dizziness. PHYSICAL EXAMINATION: VITAL SIGNS: Her blood pressure is 124/78, heart rate is 61 per minute, breathing at the rate of 16 per minute, temperature is 98 degrees Fahrenheit. HEENT: Head is normocephalic, atraumatic. NECK: Supple. There are no carotid bruits. LUNGS: Clear. CVS: S1 and S2 audible. No murmurs. ABDOMEN: Soft, nontender. Bowel sounds present. NEUROLOGIC: Mental status, the patient is awake, alert, oriented to place and hospital. She knows the year. She does not know the president's name. She follows all simple commands and her recent memory is impaired. Cranial nerve examination: Pupils 3 mm bilaterally reactive to light. Visual armijo are full. Extraocular movements are intact. There is no facial asymmetry. Palate is upgoing bilaterally. Tongue is midline. Motor examination: Tone is normal. Power is 5/5 bilaterally in all extremities. Reflexes +1 and symmetrical. Plantars downgoing bilaterally. LABORATORY DATA: Labs reviewed. Her TSH is normal. T4 is mildly low at 5.4. IMPRESSION: Altered mental status secondary to dementia of Alzheimer's type. RECOMMENDATIONS: 1. The patient to have vitamin B12 levels drawn. 2. The patient was started on Aricept, which is to be continued. 3. The patient to have an electroencephalogram. 3. The patient will require supervision at home or care home placement. 4. Please continue supportive care and other treatment. Thank you for the opportunity to participate in the care of this patient. Miracle Aj MD
[2018-04-02] MEDS: CARVEDILOL PHOSPHATE 10 MG PO SCH (18:42)
--- NOTE | 2018-04-02 20:41 | PN ---
DATE: 04/02/2018 FOLLOWUP NOTE SUBJECTIVE: She is comfortable in bed, in no acute distress. Denies any fever. No chills and rigors. Appetite is good. She is ambulating without any problem. She is very forgetful, does not remember anything. She talks to her daughter who lives out of state. She lives alone by herself. She is not able to take care of herself. Neurology consult, Dr. Aj appreciated. REVIEW OF SYSTEMS: As per HPI. Rest of 12-point review of systems reviewed negative. PHYSICAL EXAMINATION: GENERAL: Comfortable in bed, in no acute distress. VITAL SIGNS: Temperature 98.7, heart rate 70 per minute, blood pressure 124/78, respiratory rate 18 per minute, oxygen saturation 99% on room air. HEENT: No pallor. NECK: No lymphadenopathy. CHEST: Air entry present and equal bilateral. No added sound. CARDIOVASCULAR: S1, S2 normal. No murmur. No gallop. ABDOMEN: Soft, nontender. No hepatosplenomegaly. EXTREMITY: No edema. THERAPEUTIC CASE MANAGER: Oriented to time, place, person, short term memory loss. Cranial nerves intact. SKIN: No petechiae. No rash. LABORATORY DATA: B12 level is 576, TSH is 3.8. Renal function is within normal limit. Creatinine is 0.7. Hemoglobin 11 g/dL. MEDICATIONS: Pepcid 20 mg daily, Lasix 20 mg daily, Aricept 5 mg p.o. at bedtime, aspirin 81 mg daily, Eliquis 2.5 mg daily. ASSESSMENT AND PLAN: 1. Short-term memory loss. 2. Atrial fibrillation. 3. History of congestive heart failure. 4. Mild anemia. PLAN: She is not able to take care of herself. She lives by herself. Daughter lives out of state. She is saying that her daughter will arrive in next few days. We will consult Document Control Clerk for safety of discharge at home. She will not be able to take care of herself under the current circumstances. Discharge planning will be done on 04/03/2018. Donya Li MD [facility] # [id number]
--- NOTE | 2018-04-02 21:21 | HP ---
DATE OF EXAM: 04/01/2018 HISTORY OF PRESENT ILLNESS: Ms. Cr is an 82-year-old female brought to the ED by ambulance because she was more confused than the baseline. The daughter called ambulance and because she thought the mother did not sound right. She is very forgetful. She has history of CHF, atrial fibrillation, currently on Eliquis anticoagulation. Denies any chest pain. No shortness of breath. Ambulating without any problems. PAST MEDICAL HISTORY: CHF, atrial fibrillation, history of multiple falls, migraine. PAST SURGICAL HISTORY: Cardiac catheterization, status coronary stent placement, orthopedic surgery. PERSONAL HISTORY: Nonsmoker. No history of alcohol abuse. SOCIAL HISTORY: Lives at home alone. ALLERGIES: PENICILLIN. HOME MEDICATIONS: Unknown. REVIEW OF SYSTEM: As per HPI. Rest of 12-point review of systems reviewed negative. PHYSICAL EXAMINATION: GENERAL: Comfortable in bed, in no acute distress. VITAL SIGNS: Temperature 97.5, heart rate 72 per minute, respiratory rate 18 per minute, blood pressure 130/60, pulse ox is 99% on room air. HEENT: Normal. NECK: No lymphadenopathy. CHEST: Air entry present and equal bilaterally. No added sound. CARDIOVASCULAR: S1 and S2 normal. No murmur. No gallop. ABDOMEN: Soft, nontender. No hepatosplenomegaly. EXTREMITIES: No edema. REGISTERED NURSE PRACTITIONER: Confused, oriented to time, place and person, but forgets. No short-term memory. No focal, sensory or motor deficits. Cranial nerves intact. LABORATORY DATA: White count 7.1, hemoglobin 11.3, hematocrit 34.2, platelet 217. Sodium 142, potassium 4.1, BUN 27, creatinine 0.7. Glucose 92. CT of head unremarkable. EKG, no ST-T changes. ASSESSMENT AND PLAN: She will be admitted to the hospital. Neurology consultation requested for altered mental status. She cannot have MRI because of the pacemaker. Supportive treatment was advised. Reviewed Dr. Aj's note. Urine culture sent. CBC showed mild anemia, monocytosis. We will continue Eliquis 2.5 mg p.o. b.i.d. for atrial fibrillation, aspirin 81 mg daily, Aricept 5 mg p.o. at bedtime, Lasix 20 mg daily. Vitamin B12 level, TSH will be sent. Donya Li MD [facility] # [id number]
--- NOTE | 2018-04-03 11:46 | CP.PCM.PN ---
<Alyson Arellano - Last Filed: 04/03/18 11:42> Subjective - Date & Time of Evaluation Date of Evaluation: 04/03/18 Time of Evaluation: 07:00 - Subjective Subjective: Medicine Progress Note for Sowmya Alvarez PGY3 Patient seen and examined at bedside. There were no acute overnight events as per nursing staff. Patient is A&O x 3 this am, but gets confused at times as per nursing staff. She states her daughter is coming here tomorrow from [place]. She had a BM yesterday. She denies chest pain, shortness of breath, nausea/vomiting/diarrhea, fever/chills, numbness/tingling, dysuria or hematuria. Objective - Vital Signs/Intake and Output Vital Signs (last 24 hours): Temp Pulse Resp BP Pulse Ox 98.6 F 78 18 90/53 L 97 04/03/18 06:00 04/03/18 06:00 04/03/18 06:00 04/03/18 09:00 04/03/18 06:00 Intake and Output: 04/03/18 04/03/18 06:59 18:59 Intake Total 300 Output Total 2 Balance 298 - Medications Medications: Current Medications Apixaban (Eliquis) 2.5 mg PO DAILY [facility] PRN Reason: Protocol Last Admin: 04/03/18 09:00 Dose: 2.5 mg Aspirin (Aspirin Chewable) 81 mg PO DAILY [facility] Last Admin: 04/03/18 09:00 Dose: 81 mg Donepezil HCl (Aricept) 5 mg PO HS [facility] Last Admin: 04/02/18 20:59 Dose: 5 mg Furosemide (Lasix) 20 mg PO DAILY [facility] Last Admin: 04/03/18 09:00 Dose: Not Given Home Med (Home Med) 10 unit PO QPM [facility] Last Admin: 04/02/18 18:42 Dose: 10 unit - Labs Labs: PT 13.0 SECONDS (9.4-12.5) H 03/31/18 17:45 INR 1.14 (0.93-1.08) H 03/31/18 17:45 APTT 29.1 Seconds (25.1-36.5) 03/31/18 17:45 - Constitutional Appears: No Acute Distress - Head Exam Head Exam: ATRAUMATIC, NORMAL INSPECTION, NORMOCEPHALIC - Eye Exam Eye Exam: Normal appearance, PERRL Pupil Exam: NORMAL ACCOMODATION, PERRL - ENT Exam ENT Exam: Mucous Membranes Moist - Respiratory Exam Respiratory Exam: Clear to Ausculation Bilateral, NORMAL BREATHING PATTERN. absent: Rales, Rhonchi, Wheezes - Cardiovascular Exam Cardiovascular Exam: REGULAR RHYTHM, +S1, +S2. absent: Gallop, Rubs, Murmur - GI/Abdominal Exam GI & Abdominal Exam: Soft, Normal Bowel Sounds. absent: Rigid, Tenderness, Mass , Rebound - Extremities Exam Extremities Exam: Normal Inspection. absent: Pedal Edema - Neurological Exam Neurological Exam: Alert, Awake, CN II-XII Intact - Skin Skin Exam: Dry, Intact, Warm Assessment and Plan - Assessment and Plan (Free Text) Assessment: This is an 82yo female with past medical history of HTN, CHF, CAD s/p stents, a.fib on Eliquis admitted for 1. Alerted mental status - secondary to dementia as per neuro - Head CT negative for acute pathology - Lives alone 2. A. Fib 3. HTN 4. CAD 5. CHF Plan: Labs and imaging reviewed. Patient walking well. Continue home medication ASA, Eliquis, Lasix. Vitals stable. Patient is mostly independent in ADL's, but is forgetful and lives alone. Daughter will be coming tomorrow from [place]. She will take her mother to [place] with her and have her mother live with her since her mother is confused at times and will need to have someone live with her. Patient will be discharged home with daughter tomorrow. Case seen, discussed and reviewed with Dr. Maya. Sowmya Arellano PGY3 <Onesimo Maya S - Last Filed: 04/03/18 22:21> Objective - Vital Signs/Intake and Output Vital Signs (last 24 hours): Temp Pulse Resp BP Pulse Ox 98.2 F 64 18 107/68 100 04/03/18 14:00 04/03/18 14:00 04/03/18 14:00 04/03/18 14:00 04/03/18 14:00 Intake and Output: 04/03/18 04/04/18 18:59 06:59 Intake Total 240 Balance 240 - Medications Medications: Current Medications Apixaban (Eliquis) 2.5 mg PO DAILY [facility] PRN Reason: Protocol Last Admin: 04/03/18 09:00 Dose: 2.5 mg Aspirin (Aspirin Chewable) 81 mg PO DAILY [facility] Last Admin: 04/03/18 09:00 Dose: 81 mg Donepezil HCl (Aricept) 5 mg PO HS [facility] Last Admin: 04/03/18 21:02 Dose: 5 mg Furosemide (Lasix) 20 mg PO DAILY [facility] Last Admin: 04/03/18 09:00 Dose: Not Given Home Med (Home Med) 10 unit PO QPM [facility] Last Admin: 04/03/18 17:39 Dose: 10 unit - Labs Labs: PT 13.0 SECONDS (9.4-12.5) H 03/31/18 17:45 INR 1.14 (0.93-1.08) H 03/31/18 17:45 APTT 29.1 Seconds (25.1-36.5) 03/31/18 17:45 Assessment and Plan - Assessment and Plan (Free Text) Assessment: Delerium Plan: Pt seen and examined. I have reviewed the note of the medical aides teacher and agree with it. I have discussed the assessment and plan with the resident. I have reviewed the patient's labs and medications. Pt alert and oriented. Daughter to take her to [place] in am. Informed Dr Jewell, PMD. Pt is comfortable and eating well. No pain.
[2018-04-03] MEDS: CARVEDILOL PHOSPHATE 10 MG PO SCH (17:39)
--- NOTE | 2018-04-04 05:27 | CP.PCM.DIS ---
<Alyson Arellano - Last Filed: 04/04/18 09:38> Provider - Provider Date of Admission: 03/31/18 20:32 Attending physician: Onesimo Maya MD Primary care physician: Anna Jewell MD Consults: Neuro: Madai Time Spent in preparation of Discharge (in minutes): 35 Hospital Course - Lab Results Lab Results: Most Recent Lab Values WBC 7.1 10^3/ul (4.5-11.0) 03/31/18 17:45 RBC 3.76 10^6/uL (3.5-6.1) 03/31/18 17:45 Hgb 11.3 g/dL (12.0-16.0) L 03/31/18 17:45 Hct 34.2 % (36.0-48.0) L 03/31/18 17:45 MCV 91.0 fl (80.0-105.0) 03/31/18 17:45 MCH 30.1 pg (25.0-35.0) 03/31/18 17:45 MCHC 33.0 g/dl (31.0-37.0) 03/31/18 17:45 RDW 13.4 % (11.5-14.5) 03/31/18 17:45 Plt Count 217 10^3/uL (120.0-450.0) 03/31/18 17:45 MPV 10.7 fl (7.0-11.0) 03/31/18 17:45 Gran % 67.6 % (50.0-68.0) 03/31/18 17:45 Lymph % (Auto) 22.0 % (22.0-35.0) 03/31/18 17:45 [place] % (Auto) 6.4 % (1.0-6.0) H 03/31/18 17:45 Eos % (Auto) 3.3 % (1.5-5.0) 03/31/18 17:45 Baso % (Auto) 0.7 % (0.0-3.0) 03/31/18 17:45 Gran # 4.77 (1.4-6.5) 03/31/18 17:45 Lymph # (Auto) 1.6 (1.2-3.4) 03/31/18 17:45 [place] # (Auto) 0.5 (0.1-0.6) 03/31/18 17:45 Eos # (Auto) 0.2 (0.0-0.7) 03/31/18 17:45 Baso # (Auto) 0.05 K/mm3 (0.0-2.0) 03/31/18 17:45 PT 13.0 SECONDS (9.4-12.5) H 03/31/18 17:45 INR 1.14 (0.93-1.08) H 03/31/18 17:45 APTT 29.1 Seconds (25.1-36.5) 03/31/18 17:45 Sodium 142 mmol/L (132-148) 03/31/18 17:45 Potassium 4.1 mmol/L (3.6-5.0) 03/31/18 17:45 Chloride 103 mmol/L (98-107) 03/31/18 17:45 Carbon Dioxide 30 mmol/L (21-33) 03/31/18 17:45 Anion Gap 13 (10-20) 03/31/18 17:45 BUN 27 mg/dL (7-21) H 03/31/18 17:45 Creatinine 0.7 mg/dl (0.7-1.2) 03/31/18 17:45 Est GFR ( Amer) > 60 03/31/18 17:45 Est GFR (Non-Af Amer) > 60 03/31/18 17:45 Random Glucose 92 mg/dL (70-110) 03/31/18 17:45 Calcium 8.7 mg/dL (8.4-10.5) 03/31/18 17:45 Magnesium 2.2 mg/dL (1.7-2.2) 03/31/18 17:45 Total Bilirubin 0.3 mg/dL (0.2-1.3) 03/31/18 17:45 AST 31 U/L (14-36) 03/31/18 17:45 ALT 26 U/L (7-56) 03/31/18 17:45 Alkaline Phosphatase 62 U/L (38-126) 03/31/18 17:45 Total Creatine Kinase 57 U/L (35-230) 03/31/18 17:45 NT-Pro-B Natriuret Pep 1440 pg/mL (0-450) H 03/31/18 17:45 Total Protein 6.8 g/dL (5.8-8.3) 03/31/18 17:45 Albumin 3.7 g/dL (3.0-4.8) 03/31/18 17:45 Globulin 3.1 gm/dL 03/31/18 17:45 Albumin/Globulin Ratio 1.2 (1.1-1.8) 03/31/18 17:45 Vitamin B12 576 pg/mL (239-931) 04/02/18 07:00 Thyroxine (T4) 5.4 ug/dL (5.5-11.0) L 04/02/18 07:00 TSH 3rd Generation 3.82 mIU/mL (0.46-4.68) 04/02/18 07:00 Urine Color Yellow (YELLOW) 03/31/18 19:36 Urine Appearance Clear (CLEAR) 03/31/18 19:36 Urine pH 7.0 (4.7-8.0) 03/31/18 19:36 Ur Specific [place] 1.010 (1.005-1.035) 03/31/18 19:36 Urine Protein Negative mg/dL (<30 mg/dL) 03/31/18 19:36 Urine Glucose (UA) Negative mg/dL (NEGATIVE) 03/31/18 19:36 Urine Ketones Negative mg/dL (NEGATIVE) 03/31/18 19:36 Urine Blood Negative (NEGATIVE) 03/31/18 19:36 Urine Nitrate Negative (NEGATIVE) 03/31/18 19:36 Urine Bilirubin Negative (NEGATIVE) 03/31/18 19:36 Urine Urobilinogen 0.2 E.U./dL (<1 E.U./dL) 03/31/18 19:36 Ur Leukocyte Esterase Small [place]/uL (NEGATIVE) H 03/31/18 19:36 Urine RBC 0 - 2 /hpf (0-2) 03/31/18 19:36 Urine WBC 5 - 10 /hpf (0-6) 03/31/18 19:36 Ur Epithelial Cells 3 - 4 /hpf (0-5) 03/31/18 19:36 Urine Bacteria Few (NEG) 03/31/18 19:36 Salicylates < 1 mg/dL (2.0-20.0) L 03/31/18 17:45 Urine Opiates Screen Negative (NEGATIVE) 03/31/18 19:36 Urine Methadone Screen Negative (NEGATIVE) 03/31/18 19:36 Acetaminophen < 10.0 ug/ml (10.0-20.0) L 03/31/18 17:45 Ur Barbiturates Screen Negative (NEGATIVE) 03/31/18 19:36 Ur Phencyclidine Scrn Negative (NEGATIVE) 03/31/18 19:36 Ur Amphetamines Screen Negative (NEGATIVE) 03/31/18 19:36 U Benzodiazepines Scrn Negative (NEGATIVE) 03/31/18 19:36 U Oth Cocaine Metabols Negative (NEGATIVE) 03/31/18 19:36 U Cannabinoids Screen Negative (NEGATIVE) 03/31/18 19:36 - Hospital Course Hospital Course: This is an 82yo female with past medical history of HTN, CHF, CAD s/p stents, a.fib on Eliquis admitted for alerted mental status. Head CT was negative for acute pathology. Labs and vitals reviewed. She lives alone and is independent in ADLs, but reports is forgetful at times. She was evaluated by neurology and they report that the AMS is most likely secondary to dementia. Patient was continued on her home meds. ASA, Eliquis, Lasix. Vitals remained stable. Daughter who is lives in [place] is arriving today. She will case picker her daughter and will be taking her to [place] with her to live with her. She will continue her home meds and be given a script for Aricept and will continue other meds. This plan was discussed with social work. Patient verbalized and agreed with plan. - Date & Time of H&P Date of H&P: 04/02/18 Time of H&P: 12:00 Discharge Exam - Head Exam Head Exam: ATRAUMATIC, NORMAL INSPECTION, NORMOCEPHALIC - Eye Exam Eye Exam: Normal appearance, PERRL Pupil Exam: NORMAL ACCOMODATION, PERRL - ENT Exam ENT Exam: Mucous Membranes Moist - Respiratory Exam Respiratory Exam: Clear to PA & Lateral, NORMAL BREATHING PATTERN, UNREMARKABLE. absent: Rhonchi, Wheezes, Respiratory Distress - Cardiovascular Exam Cardiovascular Exam: REGULAR RHYTHM, +S1, +S2. absent: Gallop, Rubs, Systolic Murmur - GI/Abdominal Exam GI & Abdominal Exam: Normal Bowel Sounds, Soft, Unremarkable. absent: Guarding , Rebound, Rigid, Tenderness - Extremities Exam Extremities exam: normal inspection - Neurological Exam Neurological exam: Alert, CN II-XII Intact, Oriented x3 - Psychiatric Exam Psychiatric exam: Normal Affect, Normal Mood - Skin Skin Exam: Dry, Intact, Normal Color, Warm Discharge Plan - Discharge Medications Prescriptions: Donepezil [Aricept] 5 mg PO HS #30 tab - Follow Up Plan Condition: STABLE Disposition: HOME/ ROUTINE Instructions: Smoking: Not Just Harmful to Your Lungs and Heart, Altered Mental Status (DC), Urinary Tract Infection in Women (DC), Urinary Tract Infection in Men (DC), Dysuria (GEN) Additional Instructions: 1. Continue medication as prescribed. 2. Follow up with [facility]BE[facility] Odom before leaving to [place]. Referrals: Anna Jewell MD [Primary Care Provider] - <Onesimo Maya - Last Filed: 04/04/18 17:24> Provider - Provider Date of Admission: 03/31/18 20:32 Attending physician: Onesimo Maya MD Primary care physician: Anna Jewell MD Hospital Course - Lab Results Lab Results: Most Recent Lab Values WBC 7.1 10^3/ul (4.5-11.0) 03/31/18 17:45 RBC 3.76 10^6/uL (3.5-6.1) 03/31/18 17:45 Hgb 11.3 g/dL (12.0-16.0) L 03/31/18 17:45 Hct 34.2 % (36.0-48.0) L 03/31/18 17:45 MCV 91.0 fl (80.0-105.0) 18 17:45 MCH 30.1 pg (25.0-35.0) 03/31/18 17:45 MCHC 33.0 g/dl (31.0-37.0) 03/31/18 17:45 RDW 13.4 % (11.5-14.5) 03/31/18 17:45 Plt Count 217 10^3/uL (120.0-450.0) 03/31/18 17:45 MPV 10.7 fl (7.0-11.0) 03/31/18 17:45 Gran % 67.6 % (50.0-68.0) 03/31/18 17:45 Lymph % (Auto) 22.0 % (22.0-35.0) 03/31/18 17:45 [place] % (Auto) 6.4 % (1.0-6.0) H 03/31/18 17:45 Eos % (Auto) 3.3 % (1.5-5.0) 03/31/18 17:45 Baso % (Auto) 0.7 % (0.0-3.0) 03/31/18 17:45 Gran # 4.77 (1.4-6.5) 03/31/18 17:45 Lymph # (Auto) 1.6 (1.2-3.4) 03/31/18 17:45 [place] # (Auto) 0.5 (0.1-0.6) 03/31/18 17:45 Eos # (Auto) 0.2 (0.0-0.7) 03/31/18 17:45 Baso # (Auto) 0.05 K/mm3 (0.0-2.0) 03/31/18 17:45 PT 13.0 SECONDS (9.4-12.5) H 03/31/18 17:45 INR 1.14 (0.93-1.08) H 03/31/18 17:45 APTT 29.1 Seconds (25.1-36.5) 03/31/18 17:45 Sodium 142 mmol/L (132-148) 03/31/18 17:45 Potassium 4.1 mmol/L (3.6-5.0) 03/31/18 17:45 Chloride 103 mmol/L (98-107) 03/31/18 17:45 Carbon Dioxide 30 mmol/L (21-33) 03/31/18 17:45 Anion Gap 13 (10-20) 03/31/18 17:45 BUN 27 mg/dL (7-21) H 03/31/18 17:45 Creatinine 0.7 mg/dl (0.7-1.2) 03/31/18 17:45 Est GFR ( Amer) > 60 03/31/18 17:45 Est GFR (Non-Af Amer) > 60 03/31/18 17:45 Random Glucose 92 mg/dL (70-110) 03/31/18 17:45 Calcium 8.7 mg/dL (8.4-10.5) 03/31/18 17:45 Magnesium 2.2 mg/dL (1.7-2.2) 03/31/18 17:45 Total Bilirubin 0.3 mg/dL (0.2-1.3) 03/31/18 17:45 AST 31 U/L (14-36) 03/31/18 17:45 ALT 26 U/L (7-56) 03/31/18 17:45 Alkaline Phosphatase 62 U/L (38-126) 03/31/18 17:45 Total Creatine Kinase 57 U/L (35-230) 03/31/18 17:45 NT-Pro-B Natriuret Pep 1440 pg/mL (0-450) H 03/31/18 17:45 Total Protein 6.8 g/dL (5.8-8.3) 03/31/18 17:45 Albumin 3.7 g/dL (3.0-4.8) 03/31/18 17:45 Globulin 3.1 gm/dL 03/31/18 17:45 Albumin/Globulin Ratio 1.2 (1.1-1.8) 03/31/18 17:45 Vitamin B12 576 pg/mL (239-931) 04/02/18 07:00 Thyroxine (T4) 5.4 ug/dL (5.5-11.0) L 04/02/18 07:00 TSH 3rd Generation 3.82 mIU/mL (0.46-4.68) 04/02/18 07:00 Urine Color Yellow (YELLOW) 03/31/18 19:36 Urine Appearance Clear (CLEAR) 03/31/18 19:36 Urine pH 7.0 (4.7-8.0) 03/31/18 19:36 Ur Specific [place] 1.010 (1.005-1.035) 03/31/18 19:36 Urine Protein Negative mg/dL (<30 mg/dL) 03/31/18 19:36 Urine Glucose (UA) Negative mg/dL (NEGATIVE) 03/31/18 19:36 Urine Ketones Negative mg/dL (NEGATIVE) 03/31/18 19:36 Urine Blood Negative (NEGATIVE) 03/31/18 19:36 Urine Nitrate Negative (NEGATIVE) 03/31/18 19:36 Urine Bilirubin Negative (NEGATIVE) 03/31/18 19:36 Urine Urobilinogen 0.2 E.U./dL (<1 E.U./dL) 03/31/18 19:36 Ur Leukocyte Esterase Small [place]/uL (NEGATIVE) H 03/31/18 19:36 Urine RBC 0 - 2 /hpf (0-2) 03/31/18 19:36 Urine WBC 5 - 10 /hpf (0-6) 03/31/18 19:36 Ur Epithelial Cells 3 - 4 /hpf (0-5) 03/31/18 19:36 Urine Bacteria Few (NEG) 03/31/18 19:36 Salicylates < 1 mg/dL (2.0-20.0) L 03/31/18 17:45 Urine Opiates Screen Negative (NEGATIVE) 03/31/18 19:36 Urine Methadone Screen Negative (NEGATIVE) 03/31/18 19:36 Acetaminophen < 10.0 ug/ml (10.0-20.0) L 03/31/18 17:45 Ur Barbiturates Screen Negative (NEGATIVE) 03/31/18 19:36 Ur Phencyclidine Scrn Negative (NEGATIVE) 03/31/18 19:36 Ur Amphetamines Screen Negative (NEGATIVE) 03/31/18 19:36 U Benzodiazepines Scrn Negative (NEGATIVE) 03/31/18 19:36 U Oth Cocaine Metabols Negative (NEGATIVE) 03/31/18 19:36 U Cannabinoids Screen Negative (NEGATIVE) 03/31/18 19:36 - Hospital Course Hospital Course: Pt seen and examined. I have reviewed the note of the medical office assistant and agree with it. I have discussed the assessment and plan with the resident. I have reviewed the patient's labs and medications. The pt's daughter will pick her up tonight. Her flight was delayed. Will continue with [facility] for her A fib. She is ambulating. She was seen by Neurology. She is eaiting ok. Vitals are controlled. Delerium has cleared up.
--- NOTE | 2018-04-04 13:51 | PN ---
DATE: 04/04/2018 FOLLOWUP SUBJECTIVE: This is an 82-year-old male with past medical history of atrial fibrillation, congestive heart failure and was admitted with altered mental state. The patient was getting more forgetful. The patient lives in a skilled nursing facility. PHYSICAL EXAMINATION: GENERAL: The patient is awake, alert and unable to do 7 serial. NEUROLOGIC: Cranial nerves, pupils reactive, EOM intact. Motor examination: Moves all the extremities spontaneously. Deep tendon reflexes, 1+. Both plantars are downgoing. Sensory appears intact. Cerebellar gait deferred. IMPRESSION: Altered mental status secondary to mild to moderate dementia. Continue present management. We will follow up. Roberto Terrell MD
[2018-04-04 14:38] VITALS: RESP 20
[2018-04-04] MEDS: CARVEDILOL PHOSPHATE 10 MG PO SCH (17:54)
[2018-04-04 22:06] VITALS: BP 125/74; PULSE 66; TEMP 98; O2SAT 97
== END 2018-04-04 22:53 | disposition home or self-care (01) | DRG 57 ==
LOC: ED 16:50 → ERH 20:32 → 5RNO 21:45
PROVIDERS: ADMIT Internal Medicine Nephrology; ATTEND Internal Medicine Nephrology
DX: G30.9 Alzheimer's disease, unspecified (principal); N39.0 Urinary tract infection, site not specified; F02.80 Dementia in other diseases classified elsewhere, unspecified severity, without behavioral disturbance, psychotic disturbance, mood disturbance, and anxiety; D64.9 Anemia, unspecified; D72.821 Monocytosis (symptomatic); H35.30 Unspecified macular degeneration; I11.0 Hypertensive heart disease with heart failure; I50.9 Heart failure, unspecified; I25.10 Atherosclerotic heart disease of native coronary artery without angina pectoris; I48.91 Unspecified atrial fibrillation; Z79.01 Long term (current) use of anticoagulants; Z79.82 Long term (current) use of aspirin; Z79.899 Other long term (current) drug therapy; Z88.0 Allergy status to penicillin; Z91.81 History of falling; Z95.0 Presence of cardiac pacemaker; Z95.5 Presence of coronary angioplasty implant and graft